=== PATIENT | male | born 1955 | race Asian ===

== ENCOUNTER 2018-10-16 16:57 | Inpatient (IN) | payer MEDICAID ==
[~2018-10-16] VITALS: Ht 167.6 cm; Wt 88.5 kg
[~2018-10-16 16:57] MED LIST: ACET-2178 PO; ASPI-1393 PO; DOCU-150 PO; KEPP500 PO; LIP40 PO; MEMA10TA2 PO; MOM PO; MULT-348 PO; PHEN30TA42 PO; TEMA15CA PO
[2018-10-16] MEDS ORDERED: PIPERACILLIN/TAZ 3.375G PREMIX 50 ML IV ONE (18:00)
[2018-10-16] MEDS ORDERED: SODIUM CHLORIDE 0.9% 1000ML BAG (SEPSIS BOLUS) IV ONE (18:00)
[2018-10-16] MEDS ORDERED: VANCOMYCIN 1 G PREMIX 200 ML IV ONE (18:00)
[2018-10-16 18:31] LABS: HEMATOCRIT. 39.6 % (42.0-52.0); HEMOGLOBIN. 13.4 g/dL (14.0-18.0); MEAN CORPUSCULAR HEMOGLOBIN 30.3 pg (28.0-32.0); MEAN CORPUSCULAR VOLUME 89.7 fL (80.0-94.0); MEAN PLATELET VOLUME 8.3 fl (7.4-10.4); PLATELET 233 x1000/uL (130-400); RED BLOOD CELL COUNT 4.41 mill/uL (4.7-6.1); RED CELL DISTRIBUTION WIDTH 13.7 % (11.6-14.6)
[2018-10-16 18:33] LABS: CHLORIDE 102 mEq/L (98-107)
[2018-10-16 18:34] LABS: PROTHROMBIN TIME 10.3 sec (9.6-11.0)
[2018-10-16] MEDS ORDERED: IOHEXOL-350 100 ML BOTTLE ONE (19:03)
[2018-10-16 19:13] LABS: PLATELET ESTIMATE NORMAL
[2018-10-16] MEDS ORDERED: CLONIDINE 0.1MG TABLET PO PRN (23:45)
[2018-10-16] MEDS ORDERED: MAGNESIUM/ALUMINUM HYDROXIDE/SIMETHICONE 30ML UDC PO PRN (23:45)
[2018-10-16] MEDS ORDERED: IPRATROPIUM/ALBUTEROL 0.5-3(2.5)MG/3ML NEB INH PRN (23:45)
[2018-10-16] MEDS ORDERED: ONDANSETRON HCL 4MG/2ML INJ IV PRN (23:45)
[2018-10-16] MEDS ORDERED: DOCUSATE SODIUM 100MG CAPSULE PO PRN (23:45)
[2018-10-16] MEDS ORDERED: DIPHENHYDRAMINE 50MG/ML VIAL IV PRN (23:45)
[2018-10-16] MEDS ORDERED: ACETAMINOPHEN 650MG SUPP PR PRN (23:45)
[2018-10-16] MEDS ORDERED: GUAIFENESIN 200MG/10ML SUGAR FREE UDC PO PRN (23:45)
[2018-10-16] MEDS ORDERED: ACETAMINOPHEN 650MG/20.3ML UDC GT PRN (23:45)
[2018-10-16] MEDS ORDERED: NA PHOS,M-B/NA PHOS,DI-BA ENEMA 118ML PR PRN (23:45)
[2018-10-16] MEDS ORDERED: LEVOFLOXACIN 500MG PREMIX 100 ML IV SCH (23:45)
[2018-10-17 04:00] VITALS: BP 162/69
[2018-10-17 05:15] VITALS: BP 128/75
[2018-10-17] MEDS ORDERED: METRONIDAZOLE 500 MG PREMIX 100 ML IV SCH (06:00)
[2018-10-17] MEDS: METRONIDAZOLE 500 MG PREMIX 100 ML IV SCH ×3 (06:12→22:21)
[2018-10-17] MEDS: SODIUM CHLORIDE 0.45% 1,000 ML IV SCH ×2 (06:13→22:41)
[2018-10-17] MEDS: SODIUM CHLORIDE 0.9% INJ 3ML FLUSH IVF SCH ×2 (06:14→13:08)
[2018-10-17] MEDS: ACETAMINOPHEN 325MG TABLET PO PRN (06:14)
[2018-10-17 08:00] VITALS: BP 119/68
[2018-10-17] MEDS: LEVOFLOXACIN 500MG PREMIX 100 ML IV SCH (08:04)
[2018-10-17] MEDS: ENOXAPARIN 40MG/0.4ML SYR SUBCUT SCH (08:04)
[2018-10-17 12:00] VITALS: BP 110/62
[2018-10-17 15:59] LABS: HEMATOCRIT. 36.3 % (42.0-52.0); HEMOGLOBIN. 12.1 g/dL (14.0-18.0); MEAN CORPUSCULAR HEMOGLOBIN 30.2 pg (28.0-32.0); MEAN CORPUSCULAR VOLUME 90.2 fL (80.0-94.0); MEAN PLATELET VOLUME 8.4 fl (7.4-10.4); PLATELET 218 x1000/uL (130-400); RED BLOOD CELL COUNT 4.02 mill/uL (4.7-6.1); RED CELL DISTRIBUTION WIDTH 14.1 % (11.6-14.6)
[2018-10-17 16:00] VITALS: BP 115/64
[2018-10-17 16:05] LABS: CHLORIDE 105 mEq/L (98-107)
[2018-10-17 16:13] LABS: LDL CHOLESTEROL 50 mg/dL (5-100)
[2018-10-17 16:14] LABS: HDL CHOLESTEROL 23 mg/dL (40-59)
[2018-10-17 19:28] LABS: PLATELET ESTIMATE NORMAL
[2018-10-17 20:00] VITALS: BP 124/76
[2018-10-17] MEDS ORDERED: TEMAZEPAM 15MG CAPSULE PO PRN (21:45)
[2018-10-17] MEDS: PHENOBARBITAL 30 MG TABLET PO SCH (22:22)
[2018-10-17] MEDS: LEVETIRACETAM 500MG TABLET PO SCH (22:22)
[2018-10-17] MEDS: FLUCONAZOLE 100MG TABLET PO SCH (22:22)
[2018-10-18] VITALS: BP 127/73
[2018-10-18] MEDS: IPRATROPIUM/ALBUTEROL 0.5-3(2.5)MG/3ML NEB INH SCH ×4 (01:23→20:30)
[2018-10-18 04:00] VITALS: BP 109/62
[2018-10-18] MEDS: METRONIDAZOLE 500 MG PREMIX 100 ML IV SCH ×3 (05:21→21:02)
[2018-10-18] MEDS: PHENOBARBITAL 30 MG TABLET PO SCH ×3 (05:21→21:02)
[2018-10-18] MEDS: SODIUM CHLORIDE 0.9% INJ 3ML FLUSH IVF SCH ×2 (05:22→21:04)
[2018-10-18 08:00] VITALS: BP 112/64
[2018-10-18] MEDS: ENOXAPARIN 40MG/0.4ML SYR SUBCUT SCH (09:53)
[2018-10-18] MEDS: LEVETIRACETAM 500MG TABLET PO SCH ×2 (09:54→20:54)
[2018-10-18] MEDS: MEMANTINE HCL 10MG TABLET PO SCH (09:55)
[2018-10-18] MEDS: ASPIRIN 81MG EC TABLET PO SCH (09:55)
[2018-10-18] MEDS: LEVOFLOXACIN 500MG PREMIX 100 ML IV SCH (09:56)
[2018-10-18 12:00] VITALS: BP 112/64
[2018-10-18 12:02] LABS: HEMATOCRIT. 35.2 % (42.0-52.0); HEMOGLOBIN. 11.9 g/dL (14.0-18.0); MEAN CORPUSCULAR HEMOGLOBIN 30.6 pg (28.0-32.0); MEAN CORPUSCULAR VOLUME 90.4 fL (80.0-94.0); MEAN PLATELET VOLUME 8.3 fl (7.4-10.4); PLATELET 253 x1000/uL (130-400); RED BLOOD CELL COUNT 3.89 mill/uL (4.7-6.1); RED CELL DISTRIBUTION WIDTH 13.7 % (11.6-14.6)
[2018-10-18 12:08] LABS: CHLORIDE 103 mEq/L (98-107)
[2018-10-18 14:05] LABS: PLATELET ESTIMATE NORMAL
[2018-10-18 16:00] VITALS: BP 103/55
[2018-10-18] MEDS: NYSTATIN 100,000 UNITS/GM CREAM 15GM TOP SCH (18:40)
[2018-10-18] MEDS: NYSTATIN 100,000 UNITS/ML 5ML UDC SSW SCH ×2 (18:41→23:59)
[2018-10-18] MEDS ORDERED: POTASSIUM CHLORIDE 20MEQ TABLET SR PO SCH ×2 (20:00→20:30)
[2018-10-18 20:49] VITALS: BP 112/58
[2018-10-18] MEDS: FLUCONAZOLE 100MG TABLET PO SCH (20:53)
[2018-10-18] MEDS: SODIUM CHLORIDE 0.45% 1,000 ML IV SCH (20:53)
[2018-10-18] MEDS: ACETAMINOPHEN 325MG TABLET PO PRN (20:55)
[2018-10-18] MEDS ORDERED: ATORVASTATIN CALCIUM 40MG TABLET PO SCH (21:00)
[2018-10-18] MEDS ORDERED: NYSTATIN 100,000 UNITS/GM CREAM 15GM TOP SCH (21:00)
[2018-10-19 00:36] VITALS: BP 108/62
[2018-10-19] MEDS: IPRATROPIUM/ALBUTEROL 0.5-3(2.5)MG/3ML NEB INH SCH ×4 (02:45→20:42)
[2018-10-19 04:00] VITALS: BP 107/61
[2018-10-19] MEDS: SODIUM CHLORIDE 0.9% INJ 3ML FLUSH IVF SCH ×3 (05:28→21:49)
[2018-10-19] MEDS: NYSTATIN 100,000 UNITS/ML 5ML UDC SSW SCH ×3 (05:28→18:32)
[2018-10-19] MEDS: PHENOBARBITAL 30 MG TABLET PO SCH ×3 (05:29→21:49)
[2018-10-19] MEDS: METRONIDAZOLE 500 MG PREMIX 100 ML IV SCH ×3 (05:29→21:49)
[2018-10-19 07:49] LABS: HEPATITIS B SURFACE ANTIGEN NEGATIVE
[2018-10-19 08:00] VITALS: BP 110/60
[2018-10-19 08:18] LABS: HEPATITIS A AB IGM NEGATIVE (NEGATIVE)
[2018-10-19] MEDS: LEVOFLOXACIN 500MG PREMIX 100 ML IV SCH (08:48)
[2018-10-19] MEDS: LEVETIRACETAM 500MG TABLET PO SCH ×2 (08:49→20:54)
[2018-10-19] MEDS: ASPIRIN 81MG EC TABLET PO SCH (08:49)
[2018-10-19] MEDS: ENOXAPARIN 40MG/0.4ML SYR SUBCUT SCH (08:50)
[2018-10-19] MEDS: MEMANTINE HCL 10MG TABLET PO SCH (08:50)
[2018-10-19] MEDS: NYSTATIN 100,000 UNITS/GM CREAM 15GM TOP SCH ×2 (08:58→14:31)
[2018-10-19 09:05] LABS: BASOPHILS % 0.6 % (0.0-2.0); EOSINOPHILS % 2.4 % (0.0-5.0); HEMATOCRIT. 36.9 % (42.0-52.0); HEMOGLOBIN. 12.4 g/dL (14.0-18.0); LYMPHOCYTES % 7.8 % (20.0-50.0); MEAN CORPUSCULAR HEMOGLOBIN 30.9 pg (28.0-32.0); MEAN CORPUSCULAR VOLUME 91.7 fL (80.0-94.0); MEAN PLATELET VOLUME 8.4 fl (7.4-10.4); MONOCYTES % 6.1 % (2.0-8.0); NEUTROPHILS % 83.1 % (40.0-76.0); PLATELET 270 x1000/uL (130-400); RED BLOOD CELL COUNT 4.02 mill/uL (4.7-6.1); RED CELL DISTRIBUTION WIDTH 13.8 % (11.6-14.6)
[2018-10-19 10:05] LABS: CHLORIDE 105 mEq/L (98-107)
[2018-10-19] MEDS: SODIUM CHLORIDE 0.45% 1,000 ML IV SCH ×2 (10:50→22:04)
[2018-10-19 12:00] VITALS: BP 122/67
[2018-10-19 16:00] VITALS: BP 100/59
[2018-10-19] MEDS ORDERED: CLIN300C11 MT (19:45)
[2018-10-19] MEDS ORDERED: LEVO500T2 MT (19:48)
[2018-10-19 20:00] VITALS: BP 112/57
[2018-10-19] MEDS: FLUCONAZOLE 100MG TABLET PO SCH (20:53)
[2018-10-20 00:48] VITALS: BP 111/66
[2018-10-20] MEDS: IPRATROPIUM/ALBUTEROL 0.5-3(2.5)MG/3ML NEB INH SCH ×2 (01:28→08:43)
[2018-10-20 04:00] VITALS: BP 105/63
[2018-10-20] MEDS: NYSTATIN 100,000 UNITS/ML 5ML UDC SSW SCH ×2 (06:00→13:13)
[2018-10-20] MEDS: PHENOBARBITAL 30 MG TABLET PO SCH ×2 (06:02→14:00)
[2018-10-20] MEDS: SODIUM CHLORIDE 0.9% INJ 3ML FLUSH IVF SCH ×2 (06:02→14:00)
[2018-10-20] MEDS: METRONIDAZOLE 500 MG PREMIX 100 ML IV SCH ×2 (06:02→14:00)
[2018-10-20 08:34] VITALS: BP 112/59
[2018-10-20] MEDS: LEVOFLOXACIN 500MG PREMIX 100 ML IV SCH (08:50)
[2018-10-20] MEDS: ASPIRIN 81MG EC TABLET PO SCH (08:50)
[2018-10-20] MEDS: MEMANTINE HCL 10MG TABLET PO SCH (08:51)
[2018-10-20] MEDS: LEVETIRACETAM 500MG TABLET PO SCH (08:51)
[2018-10-20] MEDS: ENOXAPARIN 40MG/0.4ML SYR SUBCUT SCH (08:52)
[2018-10-20] MEDS: NYSTATIN 100,000 UNITS/GM CREAM 15GM TOP SCH (08:53)
[2018-10-20] MEDS ORDERED: BLOOD SUGAR DIAGNOSTIC STRIP TEST SCH (09:00)
[2018-10-20 11:03] VITALS: BP 112/59
[2018-10-20] MEDS ORDERED: CEPH500C2 MT (11:16)
[2018-10-20 11:51] VITALS: BP 111/70
[2018-10-20] MEDS: SODIUM CHLORIDE 0.45% 1,000 ML IV SCH (13:30)
== END 2018-10-20 14:40 | DRG 720 ==
LOC: ER 16:57 → 6WST 20:16 → EDBEDREQTM 20:31 → EDBEDREQ 20:31 → EDBEDREQSVC 20:31 → ENRESERV 10-17 02:47
PROVIDERS: ADMIT Family Medicine; ATTEND Family Medicine
DX: A41.9 Sepsis, unspecified organism (principal); E44.0 Moderate protein-calorie malnutrition; B37.0 Candidal stomatitis; F03.90 Unspecified dementia, unspecified severity, without behavioral disturbance, psychotic disturbance, mood disturbance, and anxiety; K76.0 Fatty (change of) liver, not elsewhere classified; N49.2 Inflammatory disorders of scrotum; L02.31 Cutaneous abscess of buttock; K80.20 Calculus of gallbladder without cholecystitis without obstruction; D18.03 Hemangioma of intra-abdominal structures; E78.5 Hyperlipidemia, unspecified; G40.909 Epilepsy, unspecified, not intractable, without status epilepticus; N43.3 Hydrocele, unspecified; N39.0 Urinary tract infection, site not specified; F17.200 Nicotine dependence, unspecified, uncomplicated; I11.9 Hypertensive heart disease without heart failure; J98.11 Atelectasis; K76.1 Chronic passive congestion of liver; R32 Unspecified urinary incontinence; Z79.1 Long term (current) use of non-steroidal anti-inflammatories (NSAID); Z79.899 Other long term (current) drug therapy
CPT/HCPCS: 36415; 71045; 74177; 76705; 80061; 80076; 82140; 82248; 82962; 83605; 84145; 86705; 86709; 86803; 86850; 86900; 87340; 94640; 96365; 96366; 99291; J1650; J1956; J2543; J3370; J3490; J7030; J7620; Q9967

== ENCOUNTER 2018-10-27 09:11 | Inpatient (IN) | payer MEDICAID ==
[~2018-10-27] VITALS: Ht 170.2 cm; Wt 88.0 kg
[~2018-10-27 09:11] MED LIST changes: +CEPH500C2 MT; +CLIN300C11 MT; +LEVO500T2 MT; -LIP40 PO
[2018-10-27] MEDS ORDERED: LORAZEPAM 2MG/ML CPJ ONE (09:50)
[2018-10-27] MEDS ORDERED: LEVETIRACETAM 1000MG/100ML 100 ML IV ONE (10:00)
[2018-10-27 10:30] LABS: BASOPHILS % 0.7 % (0.0-2.0); EOSINOPHILS % 0.4 % (0.0-5.0); HEMATOCRIT. 38.8 % (42.0-52.0); HEMOGLOBIN. 13.4 g/dL (14.0-18.0); LYMPHOCYTES % 17.6 % (20.0-50.0); MEAN CORPUSCULAR HEMOGLOBIN 30.9 pg (28.0-32.0); MEAN CORPUSCULAR VOLUME 89.5 fL (80.0-94.0); MEAN PLATELET VOLUME 7.8 fl (7.4-10.4); MONOCYTES % 5.6 % (2.0-8.0); NEUTROPHILS % 75.7 % (40.0-76.0); PLATELET 455 x1000/uL (130-400); RED BLOOD CELL COUNT 4.34 mill/uL (4.7-6.1); RED CELL DISTRIBUTION WIDTH 13.9 % (11.6-14.6)
[2018-10-27 10:33] LABS: CHLORIDE 101 mEq/L (98-107)
[2018-10-27 10:36] LABS: ETHANOL BLOOD < 10 mg/dL
[2018-10-27] MEDS ORDERED: LORAZEPAM 2MG/ML CPJ IM STA (10:43)
[2018-10-27] MEDS ORDERED: GUAIFENESIN 200MG/10ML SUGAR FREE UDC PO PRN (13:30)
[2018-10-27] MEDS ORDERED: MORPHINE SULFATE 2 MG/ML CPJ (NOT FOR IM USE) IV PRN (13:30)
[2018-10-27] MEDS ORDERED: ONDANSETRON HCL 4MG/2ML INJ IV PRN (13:30)
[2018-10-27] MEDS ORDERED: NA PHOS,M-B/NA PHOS,DI-BA ENEMA 118ML PR PRN (13:30)
[2018-10-27] MEDS ORDERED: MAGNESIUM/ALUMINUM HYDROXIDE/SIMETHICONE 30ML UDC PO PRN (13:30)
[2018-10-27] MEDS ORDERED: CLONIDINE 0.1MG TABLET PO PRN (13:30)
[2018-10-27] MEDS ORDERED: ACETAMINOPHEN 325MG TABLET PO PRN (13:30)
[2018-10-27] MEDS ORDERED: HYDROCODONE/ACETAMINOPHEN 5/325MG TABLET PO PRN (13:30)
[2018-10-27] MEDS ORDERED: LORAZEPAM 2MG/ML CPJ IV PRN (13:30)
[2018-10-27] MEDS ORDERED: IPRATROPIUM/ALBUTEROL 0.5-3(2.5)MG/3ML NEB NEB PRN (13:30)
[2018-10-27 15:14] LABS: CHLORIDE 102 mEq/L (98-107)
[2018-10-27 15:29] LABS: CLARITY URINE TURBID (CLEAR); COLOR URINE ORANGE (YELLOW); KETONES URINE TRACE (NEGATIVE); LEUKOCYTE ESTERASE URINE TRACE (NEGATIVE); NITRITE URINE NEGATIVE (NEGATIVE); OCCULT BLOOD URINE 3+ (NEGATIVE); PH URINE 7.5 (4.5-8.0); PROTEIN URINE TRACE (NEGATIVE); SPECIFIC GRAVITY URINE 1.009 (1.005-1.030)
[2018-10-27 15:49] LABS: *AMPHETAMINES SCREEN URINE NEGATIVE (NEGATIVE); *BARBITURATES SCREEN URINE PRESUMTIVE POSITIVE (NEGATIVE); *BENZODIAZEPINES SCREEN URINE NEGATIVE (NEGATIVE); *COCAINE SCREEN URINE NEGATIVE (NEGATIVE); METHADONE URINE SCREEN NEGATIVE (NEGATIVE); OPIATES URINE SCREEN NEGATIVE (NEGATIVE)
[2018-10-27 15:50] LABS: CANNABINOID URINE SCREEN NEGATIVE (NEGATIVE); PHENCYCLIDINE URINE SCREEN NEGATIVE (NEGATIVE)
[2018-10-27] MEDS: ENOXAPARIN 40MG/0.4ML SYR SUBCUT SCH (17:57)
[2018-10-27 18:32] VITALS: BP 132/56
[2018-10-27 20:00] VITALS: BP 130/80
[2018-10-27] MEDS: SODIUM CHLORIDE 0.45% 1,000 ML IV SCH (21:28)
[2018-10-28] VITALS (8 sets, daily range): BP systolic 104–155; BP diastolic 60–91
[2018-10-28] MEDS ORDERED: ACETAMINOPHEN 325MG TABLET PO PRN (05:15)
[2018-10-28] MEDS ORDERED: TEMAZEPAM 15MG CAPSULE PO PRN ×2 (05:15→21:00)
[2018-10-28] MEDS ORDERED: PHENOBARBITAL 30 MG TABLET PO SCH ×2 (06:00→08:00)
[2018-10-28 07:10] LABS: BASOPHILS % 0.8 % (0.0-2.0); EOSINOPHILS % 0.3 % (0.0-5.0); HEMATOCRIT. 40.6 % (42.0-52.0); HEMOGLOBIN. 13.9 g/dL (14.0-18.0); LYMPHOCYTES % 21.7 % (20.0-50.0); MEAN CORPUSCULAR HEMOGLOBIN 30.9 pg (28.0-32.0); MEAN PLATELET VOLUME 7.6 fl (7.4-10.4); MONOCYTES % 7.5 % (2.0-8.0); NEUTROPHILS % 69.7 % (40.0-76.0); PLATELET 434 x1000/uL (130-400); RED BLOOD CELL COUNT 4.51 mill/uL (4.7-6.1); RED CELL DISTRIBUTION WIDTH 13.8 % (11.6-14.6)
[2018-10-28 07:51] LABS: CHLORIDE 101 mEq/L (98-107)
[2018-10-28 08:05] LABS: LDL CHOLESTEROL 61 mg/dL (5-100)
[2018-10-28 08:07] LABS: HDL CHOLESTEROL 35 mg/dL (40-59); T4 FREE 1.32 ng/dL (0.76-1.46)
[2018-10-28] MEDS: MULTIVITAMINS,THER W-MINERALS TABLET PO SCH (08:08)
[2018-10-28] MEDS: DOCUSATE SODIUM 100MG CAPSULE PO SCH (08:08)
[2018-10-28] MEDS: MEMANTINE HCL 10MG TABLET PO SCH (08:13)
[2018-10-28] MEDS ORDERED: LEVOFLOXACIN 500MG TABLET PO SCH (09:00)
[2018-10-28] MEDS ORDERED: LEVETIRACETAM 500MG TABLET PO SCH (09:00)
[2018-10-28] MEDS ORDERED: ASPIRIN 81MG EC TABLET PO SCH ×2 (09:00)
[2018-10-28] MEDS: PHENYTOIN SODIUM 100MG/2ML VIAL IV SCH ×2 (14:21→21:55)
[2018-10-28 15:40] LABS: BG BASE EXCESS -0.1 mmol/L (-2.0-2.0); BG CARBOXYHEMOGLOBIN 0.4 % (0.5-1.5); BG DEOXYHEMOGLOBIN 4.2 % (0.0-5.0); BG FRACTION INSPIRED OXYGEN 28; BG HCO3 ACT 23.8 mmol/L (22.0-26.0); BG METHEMOGLOBIN 0.3 % (0.0-1.5); BG OXYGEN SATURATION 95.8 % (92.0-98.5); BG OXYHEMOGLOBIN 95.1 % (94.0-97.0); BG PCO2 36.7 mmHg (35.0-45.0); BG PO2 78.8 mmHg (75.0-100.0); BG SAMPLE SITE RIGHT BRACHIAL; BG TOTAL HEMOGLOBIN 14.7 g/dL (12.0-18.0); BG VENT MODE NASAL CANNULA
[2018-10-28] MEDS ORDERED: LORAZEPAM 2MG/ML CPJ IV PRN (15:45)
[2018-10-28] MEDS: LORAZEPAM 2MG/ML CPJ IV PRN (16:27)
[2018-10-28] MEDS: ENOXAPARIN 40MG/0.4ML SYR SUBCUT SCH (17:32)
[2018-10-28 17:53] LABS: *AMPHETAMINES SCREEN URINE NEGATIVE (NEGATIVE); *BARBITURATES SCREEN URINE PRESUMTIVE POSITIVE (NEGATIVE); *BENZODIAZEPINES SCREEN URINE NEGATIVE (NEGATIVE); *COCAINE SCREEN URINE NEGATIVE (NEGATIVE); METHADONE URINE SCREEN NEGATIVE (NEGATIVE)
[2018-10-28 17:54] LABS: CANNABINOID URINE SCREEN NEGATIVE (NEGATIVE); OPIATES URINE SCREEN PRESUMTIVE POSITIVE (NEGATIVE); PHENCYCLIDINE URINE SCREEN NEGATIVE (NEGATIVE)
[2018-10-28] MEDS: SULFAMETHOXAZOLE/TRIMETHOPRIM 800/160MG TABLET PO SCH (21:00)
[2018-10-28 21:54] LABS: CREATINE KINASE 74 IU/L (39-308); CREATINE KINASE MB FRACTION < 1.0 ng/mL (0.5-3.6)
[2018-10-28 21:55] LABS: T4 FREE 1.26 ng/dL (0.76-1.46)
[2018-10-28] MEDS: LEVETIRACETAM 1,000 MG in SODIUM CHLORIDE 0.9% 100 ML IV SCH (21:55)
[2018-10-29] VITALS (13 sets, daily range): BP systolic 117–150; BP diastolic 72–99
[2018-10-29 01:24] LABS: CREATINE KINASE 72 IU/L (39-308); CREATINE KINASE MB FRACTION < 1.0 ng/mL (0.5-3.6)
[2018-10-29] MEDS: PHENYTOIN SODIUM 100MG/2ML VIAL IV SCH ×2 (05:16→14:00)
[2018-10-29] MEDS: LORAZEPAM 2MG/ML CPJ IV PRN ×3 (06:23→22:35)
[2018-10-29 07:34] LABS: CREATINE KINASE 75 IU/L (39-308)
[2018-10-29 07:36] LABS: CREATINE KINASE MB FRACTION < 1.0 ng/mL (0.5-3.6)
[2018-10-29] MEDS: MULTIVITAMINS,THER W-MINERALS TABLET PO SCH (09:00)
[2018-10-29] MEDS: MEMANTINE HCL 10MG TABLET PO SCH (09:00)
[2018-10-29] MEDS: SULFAMETHOXAZOLE/TRIMETHOPRIM 800/160MG TABLET PO SCH ×2 (09:00→21:00)
[2018-10-29] MEDS: DOCUSATE SODIUM 100MG CAPSULE PO SCH (09:00)
[2018-10-29] MEDS: LEVETIRACETAM 1,000 MG in SODIUM CHLORIDE 0.9% 100 ML IV SCH ×2 (09:26→21:52)
[2018-10-29] MEDS: IPRATROPIUM/ALBUTEROL 0.5-3(2.5)MG/3ML NEB HHN SCH ×2 (16:46→20:55)
[2018-10-29] MEDS: ENOXAPARIN 40MG/0.4ML SYR SUBCUT SCH (17:20)
[2018-10-29] MEDS: SODIUM CHLORIDE 0.45% 1,000 ML IV SCH (17:21)
[2018-10-29] MEDS ORDERED: PHENYTOIN SODIUM 1,000 MG in SODIUM CHLORIDE 0.9% 100 ML IV NR (21:00)
[2018-10-30] VITALS (46 sets, daily range): BP systolic 87–169; BP diastolic 46–99
[2018-10-30] MEDS: IPRATROPIUM/ALBUTEROL 0.5-3(2.5)MG/3ML NEB HHN SCH ×5 (00:11→19:58)
[2018-10-30] MEDS: ACETYLCYSTEINE 100MG/ML 10% VIAL 4ML INH SCH ×3 (00:11→15:50)
[2018-10-30] MEDS: LORAZEPAM 2MG/ML CPJ IV PRN (07:45)
[2018-10-30] MEDS: PHENYTOIN SODIUM 100MG/2ML VIAL IV SCH ×3 (07:45→22:03)
[2018-10-30] MEDS ORDERED: LORAZEPAM 2MG/ML CPJ IV SCH ×2 (08:30→09:32)
[2018-10-30] MEDS: LEVETIRACETAM 1,000 MG in SODIUM CHLORIDE 0.9% 100 ML IV SCH (08:48)
[2018-10-30] MEDS: DOCUSATE SODIUM 100MG CAPSULE PO SCH (09:00)
[2018-10-30] MEDS ORDERED: SODIUM CHLORIDE 0.9% 10ML VIAL ONE (09:15)
[2018-10-30] MEDS ORDERED: VECURONIUM BROMIDE 10 MG/VIAL IV ONE (09:15)
[2018-10-30] MEDS ORDERED: ETOMIDATE 2MG/ML 10ML VIAL IV ONE (09:15)
[2018-10-30 10:35] LABS: BG BASE EXCESS -2.8 mmol/L (-2.0-2.0); BG CARBOXYHEMOGLOBIN 0.2 % (0.5-1.5); BG DEOXYHEMOGLOBIN 0.8 % (0.0-5.0); BG FRACTION INSPIRED OXYGEN 100; BG HCO3 ACT 21.9 mmol/L (22.0-26.0); BG METHEMOGLOBIN 0.4 % (0.0-1.5); BG OXYGEN SATURATION 99.2 % (92.0-98.5); BG OXYHEMOGLOBIN 98.6 % (94.0-97.0); BG PCO2 37.9 mmHg (35.0-45.0); BG PH 7.379 (7.350-7.450); BG SAMPLE SITE RIGHT BRACHIAL; BG TIDAL VOLUME(mL) 500 mL; BG TOTAL HEMOGLOBIN 14.7 g/dL (12.0-18.0); BG VENT MODE VENT - A/C; BG VENT RATE 14 set
[2018-10-30] MEDS: SULFAMETHOXAZOLE/TRIMETHOPRIM 800/160MG TABLET PO SCH ×2 (11:29→20:57)
[2018-10-30] MEDS: MULTIVITAMINS,THER W-MINERALS TABLET PO SCH (11:30)
[2018-10-30] MEDS: PROPOFOL 10MG/ML 100ML 100 ML IV PRN ×2 (11:34→19:15)
[2018-10-30] MEDS: PIPERACILLIN/TAZOBACTAM 3.375 G in DEXT 5% WATER 100 ML IV SCH ×2 (13:10→19:25)
[2018-10-30] MEDS: SODIUM CHLORIDE 0.45% 1,000 ML IV SCH (13:14)
[2018-10-30] MEDS: FAMOTIDINE 20MG/2ML VIAL IV SCH (14:02)
[2018-10-30 14:29] LABS: CHLORIDE 102 mEq/L (98-107)
[2018-10-30] MEDS: MEMANTINE HCL 10MG TABLET PO SCH (14:30)
[2018-10-30] MEDS ORDERED: ACETAMINOPHEN 650MG/20.3ML UDC PO PRN (14:30)
[2018-10-30] MEDS: DEXT 5%/0.9% NACL 1,000 ML IV SCH (14:35)
[2018-10-30 17:39] LABS: BASOPHILS % 0.8 % (0.0-2.0); EOSINOPHILS % 0.1 % (0.0-5.0); HEMATOCRIT. 40.3 % (42.0-52.0); HEMOGLOBIN. 13.5 g/dL (14.0-18.0); LYMPHOCYTES % 15.5 % (20.0-50.0); MEAN CORPUSCULAR HEMOGLOBIN 30.5 pg (28.0-32.0); MEAN CORPUSCULAR VOLUME 91.2 fL (80.0-94.0); MEAN PLATELET VOLUME 7.8 fl (7.4-10.4); MONOCYTES % 9.1 % (2.0-8.0); NEUTROPHILS % 74.5 % (40.0-76.0); PLATELET 361 x1000/uL (130-400); RED BLOOD CELL COUNT 4.42 mill/uL (4.7-6.1); RED CELL DISTRIBUTION WIDTH 14.2 % (11.6-14.6)
[2018-10-30] MEDS: ENOXAPARIN 40MG/0.4ML SYR SUBCUT SCH (19:25)
[2018-10-30] MEDS: LEVETIRACETAM 1,500 MG in SODIUM CHLORIDE 0.9% 100 ML IV SCH (20:57)
[2018-10-30] MEDS: NYSTATIN 100,000 UNITS/GM CREAM 15GM TOP SCH (22:58)
[2018-10-31] VITALS (66 sets, daily range): BP systolic 96–137; BP diastolic 56–90
[2018-10-31] MEDS: ACETYLCYSTEINE 100MG/ML 10% VIAL 4ML INH SCH ×2 (00:13→08:06)
[2018-10-31] MEDS: IPRATROPIUM/ALBUTEROL 0.5-3(2.5)MG/3ML NEB HHN SCH ×6 (00:13→20:03)
[2018-10-31] MEDS: PIPERACILLIN/TAZOBACTAM 3.375 G in DEXT 5% WATER 100 ML IV SCH ×4 (00:24→17:16)
[2018-10-31] MEDS: PROPOFOL 10MG/ML 100ML 100 ML IV PRN (05:19)
[2018-10-31 05:43] LABS: BASOPHILS % 0.4 % (0.0-2.0); EOSINOPHILS % 0.9 % (0.0-5.0); HEMATOCRIT. 37.3 % (42.0-52.0); HEMOGLOBIN. 12.5 g/dL (14.0-18.0); LYMPHOCYTES % 15.2 % (20.0-50.0); MEAN CORPUSCULAR HEMOGLOBIN 30.6 pg (28.0-32.0); MEAN CORPUSCULAR VOLUME 91.2 fL (80.0-94.0); MEAN PLATELET VOLUME 7.6 fl (7.4-10.4); MONOCYTES % 11.2 % (2.0-8.0); NEUTROPHILS % 72.3 % (40.0-76.0); PLATELET 275 x1000/uL (130-400)
[2018-10-31 05:55] LABS: CHLORIDE 104 mEq/L (98-107)
[2018-10-31] MEDS: PHENYTOIN SODIUM 100MG/2ML VIAL IV SCH ×3 (05:58→22:05)
[2018-10-31] MEDS: DEXT 5%/0.9% NACL 1,000 ML IV SCH ×2 (05:59→17:17)
[2018-10-31] MEDS: LEVETIRACETAM 1,500 MG in SODIUM CHLORIDE 0.9% 100 ML IV SCH ×2 (08:15→20:52)
[2018-10-31] MEDS: MULTIVITAMINS,THER W-MINERALS TABLET PO SCH (08:15)
[2018-10-31] MEDS: SULFAMETHOXAZOLE/TRIMETHOPRIM 800/160MG TABLET PO SCH ×2 (08:15→20:52)
[2018-10-31] MEDS: MEMANTINE HCL 10MG TABLET PO SCH (08:15)
[2018-10-31] MEDS: NYSTATIN 100,000 UNITS/GM CREAM 15GM TOP SCH ×2 (08:15→20:52)
[2018-10-31] MEDS: FAMOTIDINE 20MG/2ML VIAL IV SCH (08:15)
[2018-10-31] MEDS: DOCUSATE SODIUM 100MG CAPSULE PO SCH (08:16)
[2018-10-31 08:46] LABS: BG BASE EXCESS 2.3 mmol/L (-2.0-2.0); BG CARBOXYHEMOGLOBIN 0.2 % (0.5-1.5); BG DEOXYHEMOGLOBIN 0.8 % (0.0-5.0); BG FRACTION INSPIRED OXYGEN 50; BG HCO3 ACT 26.4 mmol/L (22.0-26.0); BG METHEMOGLOBIN 0.3 % (0.0-1.5); BG OXYGEN SATURATION 99.2 % (92.0-98.5); BG OXYHEMOGLOBIN 98.7 % (94.0-97.0); BG PCO2 39.2 mmHg (35.0-45.0); BG PH 7.446 (7.350-7.450); BG PO2 188.4 mmHg (75.0-100.0); BG SAMPLE SITE RIGHT RADIAL; BG TIDAL VOLUME(mL) 500 mL; BG VENT MODE VENT - A/C; BG VENT RATE 14 set
[2018-10-31] MEDS ORDERED: PROPOFOL 10MG/ML 100ML 100 ML IV PRN (10:30)
[2018-10-31] MEDS ORDERED: POTASSIUM CHLORIDE INJ 40 MEQ in DEXT 5% WATER 250 ML IV NR (11:30)
[2018-10-31] MEDS: ENOXAPARIN 40MG/0.4ML SYR SUBCUT SCH (17:17)
[2018-11-01] VITALS (48 sets, daily range): BP systolic 93–129; BP diastolic 55–80
[2018-11-01] MEDS: IPRATROPIUM/ALBUTEROL 0.5-3(2.5)MG/3ML NEB HHN SCH ×5 (04:06→20:58)
[2018-11-01 05:43] LABS: BASOPHILS % 0.7 % (0.0-2.0); EOSINOPHILS % 1.5 % (0.0-5.0); HEMATOCRIT. 34.4 % (42.0-52.0); HEMOGLOBIN. 11.7 g/dL (14.0-18.0); LYMPHOCYTES % 18.2 % (20.0-50.0); MEAN CORPUSCULAR HEMOGLOBIN 30.7 pg (28.0-32.0); MEAN CORPUSCULAR VOLUME 90.2 fL (80.0-94.0); MEAN PLATELET VOLUME 8.1 fl (7.4-10.4); MONOCYTES % 8.7 % (2.0-8.0); NEUTROPHILS % 70.9 % (40.0-76.0); PLATELET 272 x1000/uL (130-400); RED BLOOD CELL COUNT 3.81 mill/uL (4.7-6.1); RED CELL DISTRIBUTION WIDTH 14.1 % (11.6-14.6)
[2018-11-01 05:45] LABS: CHLORIDE 110 mEq/L (98-107)
[2018-11-01] MEDS: PIPERACILLIN/TAZOBACTAM 3.375 G in DEXT 5% WATER 100 ML IV SCH ×5 (06:04→17:39)
[2018-11-01] MEDS: PHENYTOIN SODIUM 100MG/2ML VIAL IV SCH ×3 (06:04→21:25)
[2018-11-01 07:12] LABS: BG BASE EXCESS -0.5 mmol/L (-2.0-2.0); BG CARBOXYHEMOGLOBIN 0.2 % (0.5-1.5); BG DEOXYHEMOGLOBIN 1.5 % (0.0-5.0); BG HCO3 ACT 22.9 mmol/L (22.0-26.0); BG METHEMOGLOBIN 0.6 % (0.0-1.5); BG OXYGEN SATURATION 98.5 % (92.0-98.5); BG OXYHEMOGLOBIN 97.7 % (94.0-97.0); BG PCO2 33.6 mmHg (35.0-45.0); BG PH 7.451 (7.350-7.450); BG PO2 129.5 mmHg (75.0-100.0); BG SAMPLE SITE RIGHT BRACHIAL; BG TIDAL VOLUME(mL) 500 mL; BG TOTAL HEMOGLOBIN 12.4 g/dL (12.0-18.0); BG VENT MODE VENT - A/C; BG VENT RATE 14 set
[2018-11-01] MEDS: DEXT 5%/0.9% NACL 1,000 ML IV SCH ×2 (07:28→17:40)
[2018-11-01] MEDS ORDERED: POTASSIUM CHLORIDE 20MEQ/PACKET PO SCH (08:00)
[2018-11-01] MEDS: DOCUSATE SODIUM 100MG CAPSULE PO SCH (08:07)
[2018-11-01] MEDS: MEMANTINE HCL 10MG TABLET PO SCH (08:07)
[2018-11-01] MEDS: SULFAMETHOXAZOLE/TRIMETHOPRIM 800/160MG TABLET PO SCH ×2 (08:07→21:24)
[2018-11-01] MEDS: MULTIVITAMINS,THER W-MINERALS TABLET PO SCH (08:07)
[2018-11-01] MEDS: FAMOTIDINE 20MG/2ML VIAL IV SCH (08:07)
[2018-11-01] MEDS: LEVETIRACETAM 1,500 MG in SODIUM CHLORIDE 0.9% 100 ML IV SCH ×2 (08:08→21:43)
[2018-11-01] MEDS: NYSTATIN 100,000 UNITS/GM CREAM 15GM TOP SCH ×2 (08:08→21:26)
[2018-11-01] MEDS: ACETYLCYSTEINE 100MG/ML 10% VIAL 4ML INH SCH (08:49)
[2018-11-01] MEDS: ENOXAPARIN 40MG/0.4ML SYR SUBCUT SCH (17:39)
[2018-11-02] VITALS (37 sets, daily range): BP systolic 91–152; BP diastolic 57–84
[2018-11-02] MEDS: ACETYLCYSTEINE 100MG/ML 10% VIAL 4ML INH SCH ×3 (00:36→15:06)
[2018-11-02] MEDS: IPRATROPIUM/ALBUTEROL 0.5-3(2.5)MG/3ML NEB HHN SCH ×6 (00:36→20:46)
[2018-11-02] MEDS: PIPERACILLIN/TAZOBACTAM 3.375 G in DEXT 5% WATER 100 ML IV SCH ×4 (00:57→17:31)
[2018-11-02] MEDS: DEXT 5%/0.9% NACL 1,000 ML IV SCH ×2 (03:58→20:56)
[2018-11-02 07:31] LABS: BG BASE EXCESS -1.2 mmol/L (-2.0-2.0); BG CARBOXYHEMOGLOBIN 0.3 % (0.5-1.5); BG DEOXYHEMOGLOBIN 1.4 % (0.0-5.0); BG HCO3 ACT 22.2 mmol/L (22.0-26.0); BG METHEMOGLOBIN 0.3 % (0.0-1.5); BG OXYGEN SATURATION 98.6 % (92.0-98.5); BG PCO2 32.9 mmHg (35.0-45.0); BG PH 7.447 (7.350-7.450); BG PO2 130.4 mmHg (75.0-100.0); BG SAMPLE SITE RIGHT BRACHIAL; BG TIDAL VOLUME(mL) 500 mL; BG TOTAL HEMOGLOBIN 11.6 g/dL (12.0-18.0); BG VENT MODE VENT - A/C; BG VENT RATE 12 set
[2018-11-02 08:04] LABS: BASOPHILS % 0.8 % (0.0-2.0); EOSINOPHILS % 3.1 % (0.0-5.0); HEMATOCRIT. 33.5 % (42.0-52.0); HEMOGLOBIN. 11.1 g/dL (14.0-18.0); LYMPHOCYTES % 20.3 % (20.0-50.0); MEAN CORPUSCULAR HEMOGLOBIN 30.5 pg (28.0-32.0); MEAN CORPUSCULAR VOLUME 92.1 fL (80.0-94.0); MEAN PLATELET VOLUME 8.3 fl (7.4-10.4); MONOCYTES % 10.3 % (2.0-8.0); NEUTROPHILS % 65.5 % (40.0-76.0); PLATELET 228 x1000/uL (130-400); RED BLOOD CELL COUNT 3.64 mill/uL (4.7-6.1); RED CELL DISTRIBUTION WIDTH 14.6 % (11.6-14.6)
[2018-11-02 08:09] LABS: CHLORIDE 111 mEq/L (98-107)
[2018-11-02] MEDS: LEVETIRACETAM 500MG/5ML CUP PO SCH ×2 (08:27→21:09)
[2018-11-02] MEDS: FAMOTIDINE 20MG/2ML VIAL IV SCH (08:28)
[2018-11-02] MEDS: MULTIVITAMINS,THER W-MINERALS TABLET PO SCH (08:28)
[2018-11-02] MEDS: NYSTATIN 100,000 UNITS/GM CREAM 15GM TOP SCH ×2 (08:28→21:12)
[2018-11-02] MEDS: SULFAMETHOXAZOLE/TRIMETHOPRIM 800/160MG TABLET PO SCH ×2 (08:28→21:10)
[2018-11-02] MEDS: DOCUSATE SODIUM 100MG CAPSULE PO SCH (08:28)
[2018-11-02] MEDS: PHENYTOIN 100 MG/4 ML UDC NG SCH ×2 (08:28→17:32)
[2018-11-02 14:28] LABS: BG BASE EXCESS -0.6 mmol/L (-2.0-2.0); BG CARBOXYHEMOGLOBIN 0.3 % (0.5-1.5); BG DEOXYHEMOGLOBIN 1.4 % (0.0-5.0); BG HCO3 ACT 23.2 mmol/L (22.0-26.0); BG METHEMOGLOBIN 0.2 % (0.0-1.5); BG OXYGEN SATURATION 98.6 % (92.0-98.5); BG OXYHEMOGLOBIN 98.1 % (94.0-97.0); BG PCO2 35.4 mmHg (35.0-45.0); BG PH 7.435 (7.350-7.450); BG PO2 140.1 mmHg (75.0-100.0); BG SAMPLE SITE RIGHT BRACHIAL; BG TIDAL VOLUME(mL) 500 mL; BG TOTAL HEMOGLOBIN 11.5 g/dL (12.0-18.0); BG VENT MODE VENT - SIMV; BG VENT RATE 10 set
[2018-11-02] MEDS: ENOXAPARIN 40MG/0.4ML SYR SUBCUT SCH (17:32)
[2018-11-03] VITALS (35 sets, daily range): BP systolic 99–142; BP diastolic 57–86
[2018-11-03] MEDS: ACETYLCYSTEINE 100MG/ML 10% VIAL 4ML INH SCH ×3 (00:13→15:27)
[2018-11-03] MEDS: IPRATROPIUM/ALBUTEROL 0.5-3(2.5)MG/3ML NEB HHN SCH ×6 (00:14→21:11)
[2018-11-03] MEDS: PIPERACILLIN/TAZOBACTAM 3.375 G in DEXT 5% WATER 100 ML IV SCH ×5 (00:32→23:37)
[2018-11-03 06:04] LABS: CHLORIDE 111 mEq/L (98-107)
[2018-11-03 08:15] LABS: HEMOGLOBIN 11.6 g/dL (14.0-18.0); MEAN CORPUSCULAR HEMOGLOBIN 30.9 pg (28.0-32.0); MEAN CORPUSCULAR VOLUME 90.8 fL (80.0-94.0); PLATELET 263 x1000/uL (130-400); RED BLOOD CELL COUNT 3.75 mill/uL (4.7-6.1); RED CELL DISTRIBUTION WIDTH 14.3 % (11.6-14.6)
[2018-11-03] MEDS: SULFAMETHOXAZOLE/TRIMETHOPRIM 800/160MG TABLET PO SCH ×2 (08:49→20:51)
[2018-11-03] MEDS: FAMOTIDINE 20MG/2ML VIAL IV SCH (08:49)
[2018-11-03] MEDS: MULTIVITAMINS,THER W-MINERALS TABLET PO SCH (08:49)
[2018-11-03 08:50] LABS: BG BASE EXCESS -0.9 mmol/L (-2.0-2.0); BG CARBOXYHEMOGLOBIN 0.5 % (0.5-1.5); BG DEOXYHEMOGLOBIN 1.8 % (0.0-5.0); BG FRACTION INSPIRED OXYGEN 40; BG HCO3 ACT 22.9 mmol/L (22.0-26.0); BG METHEMOGLOBIN 0.3 % (0.0-1.5); BG OXYGEN SATURATION 98.2 % (92.0-98.5); BG OXYHEMOGLOBIN 97.4 % (94.0-97.0); BG PCO2 35.6 mmHg (35.0-45.0); BG PH 7.427 (7.350-7.450); BG PO2 110.6 mmHg (75.0-100.0); BG PRESSURE SUPPORT 14; BG SAMPLE SITE RIGHT BRACHIAL; BG TIDAL VOLUME(mL) 500 mL; BG TOTAL HEMOGLOBIN 13.4 g/dL (12.0-18.0); BG VENT MODE VENT - SIMV; BG VENT RATE 10 set
[2018-11-03] MEDS: LEVETIRACETAM 500MG/5ML CUP PO SCH ×2 (08:50→20:52)
[2018-11-03] MEDS: DEXT 5%/0.9% NACL 1,000 ML IV SCH (08:50)
[2018-11-03] MEDS: DOCUSATE SODIUM 100MG CAPSULE PO SCH (08:50)
[2018-11-03] MEDS: PHENYTOIN 100 MG/4 ML UDC NG SCH ×2 (08:50→17:24)
[2018-11-03] MEDS: NYSTATIN 100,000 UNITS/GM CREAM 15GM TOP SCH ×2 (08:51→20:56)
[2018-11-03 12:29] LABS: BG BASE EXCESS 1.2 mmol/L (-2.0-2.0); BG CARBOXYHEMOGLOBIN 0.2 % (0.5-1.5); BG DEOXYHEMOGLOBIN 2.1 % (0.0-5.0); BG FRACTION INSPIRED OXYGEN 35; BG HCO3 ACT 25.7 mmol/L (22.0-26.0); BG METHEMOGLOBIN 0.3 % (0.0-1.5); BG OXYGEN SATURATION 97.9 % (92.0-98.5); BG OXYHEMOGLOBIN 97.4 % (94.0-97.0); BG PCO2 40.4 mmHg (35.0-45.0); BG PH 7.422 (7.350-7.450); BG PO2 108.3 mmHg (75.0-100.0); BG PRESSURE SUPPORT 8; BG SAMPLE SITE RIGHT BRACHIAL; BG TOTAL HEMOGLOBIN 13.6 g/dL (12.0-18.0); BG VENT MODE VENT - CPAP
[2018-11-03] MEDS: NYSTATIN 100,000 UNITS/ML 5ML UDC SSW SCH ×3 (12:41→23:37)
[2018-11-03] MEDS: ENOXAPARIN 40MG/0.4ML SYR SUBCUT SCH (17:24)
[2018-11-04] VITALS (32 sets, daily range): BP systolic 102–144; BP diastolic 59–86
[2018-11-04] MEDS: IPRATROPIUM/ALBUTEROL 0.5-3(2.5)MG/3ML NEB HHN SCH ×7 (00:44→23:41)
[2018-11-04] MEDS: PIPERACILLIN/TAZOBACTAM 3.375 G in DEXT 5% WATER 100 ML IV SCH (05:37)
[2018-11-04] MEDS: NYSTATIN 100,000 UNITS/ML 5ML UDC SSW SCH ×4 (05:41→23:38)
[2018-11-04] MEDS: DEXT 5%/0.9% NACL 1,000 ML IV SCH ×3 (07:41→20:30)
[2018-11-04] MEDS: DOCUSATE SODIUM 100MG CAPSULE PO SCH (09:00)
[2018-11-04] MEDS: FAMOTIDINE 20MG/2ML VIAL IV SCH (09:39)
[2018-11-04] MEDS: MULTIVITAMINS,THER W-MINERALS TABLET PO SCH (09:39)
[2018-11-04] MEDS: SULFAMETHOXAZOLE/TRIMETHOPRIM 800/160MG TABLET PO SCH ×2 (09:39→20:28)
[2018-11-04] MEDS: PHENYTOIN 100 MG/4 ML UDC NG SCH ×2 (09:40→16:58)
[2018-11-04] MEDS: LEVETIRACETAM 500MG/5ML CUP PO SCH ×2 (09:40→20:29)
[2018-11-04] MEDS: NYSTATIN 100,000 UNITS/GM CREAM 15GM TOP SCH ×2 (09:44→20:29)
[2018-11-04] MEDS: METRONIDAZOLE 500 MG PREMIX 100 ML IV SCH ×2 (13:40→20:28)
[2018-11-04] MEDS: ENOXAPARIN 40MG/0.4ML SYR SUBCUT SCH (16:54)
[2018-11-04] MEDS: ACETYLCYSTEINE 100MG/ML 10% VIAL 4ML INH SCH (20:34)
[2018-11-05] VITALS (25 sets, daily range): BP systolic 71–170; BP diastolic 39–101
[2018-11-05] MEDS: DIPHENHYDRAMINE 50MG/ML VIAL IV PRN ×2 (01:24→15:40)
[2018-11-05] MEDS: METRONIDAZOLE 500 MG PREMIX 100 ML IV SCH ×3 (03:24→20:27)
[2018-11-05] MEDS: IPRATROPIUM/ALBUTEROL 0.5-3(2.5)MG/3ML NEB HHN SCH ×5 (04:18→20:11)
[2018-11-05 05:26] LABS: BASOPHILS % 0.8 % (0.0-2.0); EOSINOPHILS % 9.1 % (0.0-5.0); HEMOGLOBIN. 12.2 g/dL (14.0-18.0); MEAN CORPUSCULAR HEMOGLOBIN 30.9 pg (28.0-32.0); MEAN CORPUSCULAR VOLUME 90.8 fL (80.0-94.0); MEAN PLATELET VOLUME 7.6 fl (7.4-10.4); MONOCYTES % 12.1 % (2.0-8.0); PLATELET 268 x1000/uL (130-400); RED BLOOD CELL COUNT 3.96 mill/uL (4.7-6.1)
[2018-11-05 05:32] LABS: CHLORIDE 111 mEq/L (98-107)
[2018-11-05] MEDS: NYSTATIN 100,000 UNITS/ML 5ML UDC SSW SCH ×3 (06:06→17:16)
[2018-11-05] MEDS: MULTIVITAMINS,THER W-MINERALS TABLET PO SCH (08:51)
[2018-11-05] MEDS: LEVETIRACETAM 500MG/5ML CUP PO SCH ×2 (08:51→20:27)
[2018-11-05] MEDS: FAMOTIDINE 20MG/2ML VIAL IV SCH (08:51)
[2018-11-05] MEDS: PHENYTOIN 100 MG/4 ML UDC NG SCH ×2 (08:51→17:16)
[2018-11-05] MEDS: NYSTATIN 100,000 UNITS/GM CREAM 15GM TOP SCH ×2 (08:53→22:08)
[2018-11-05] MEDS: DEXT 5%/0.9% NACL 1,000 ML IV SCH ×2 (09:12→22:08)
[2018-11-05] MEDS: DOCUSATE SODIUM SUGAR FREE 100MG/10ML UDC NG SCH (09:58)
[2018-11-05] MEDS: ENOXAPARIN 40MG/0.4ML SYR SUBCUT SCH (17:18)
[2018-11-06] VITALS: BP 129/60
[2018-11-06] MEDS: IPRATROPIUM/ALBUTEROL 0.5-3(2.5)MG/3ML NEB HHN SCH ×6 (00:38→21:35)
[2018-11-06] MEDS: NYSTATIN 100,000 UNITS/ML 5ML UDC SSW SCH ×4 (00:46→17:28)
[2018-11-06 04:00] VITALS: BP 123/67
[2018-11-06] MEDS: METRONIDAZOLE 500 MG PREMIX 100 ML IV SCH ×3 (04:04→20:28)
[2018-11-06 06:58] LABS: HEMATOCRIT. 38.3 % (42.0-52.0); HEMOGLOBIN. 12.8 g/dL (14.0-18.0); MEAN CORPUSCULAR HEMOGLOBIN 30.4 pg (28.0-32.0); MEAN CORPUSCULAR VOLUME 91.1 fL (80.0-94.0); MEAN PLATELET VOLUME 7.8 fl (7.4-10.4); PLATELET 286 x1000/uL (130-400); RED CELL DISTRIBUTION WIDTH 14.4 % (11.6-14.6)
[2018-11-06 07:14] LABS: CHLORIDE 108 mEq/L (98-107)
[2018-11-06 08:00] VITALS: BP 125/69
[2018-11-06] MEDS: DOCUSATE SODIUM 100MG CAPSULE PO PRN (08:42)
[2018-11-06] MEDS: MULTIVITAMINS,THER W-MINERALS TABLET PO SCH (08:42)
[2018-11-06] MEDS: PHENYTOIN 100 MG/4 ML UDC NG SCH ×2 (08:42→17:23)
[2018-11-06] MEDS: LEVETIRACETAM 500MG/5ML CUP PO SCH ×2 (08:42→20:28)
[2018-11-06] MEDS: DOCUSATE SODIUM SUGAR FREE 100MG/10ML UDC NG SCH ×2 (09:00→09:15)
[2018-11-06] MEDS: NYSTATIN 100,000 UNITS/GM CREAM 15GM TOP SCH ×2 (09:29→20:28)
[2018-11-06] MEDS: DEXT 5%/0.9% NACL 1,000 ML IV SCH (11:41)
[2018-11-06] MEDS: FAMOTIDINE 20MG/2ML VIAL IV SCH (11:45)
[2018-11-06 11:55] LABS: PLATELET ESTIMATE NORMAL
[2018-11-06 12:00] VITALS: BP 119/63
[2018-11-06 16:27] VITALS: BP 126/69
[2018-11-06] MEDS: ENOXAPARIN 40MG/0.4ML SYR SUBCUT SCH (17:24)
[2018-11-06 20:00] VITALS: BP 135/73
[2018-11-07] VITALS: BP 130/72
[2018-11-07] MEDS: NYSTATIN 100,000 UNITS/ML 5ML UDC SSW SCH ×4 (00:06→18:05)
[2018-11-07] MEDS: DEXT 5%/0.9% NACL 1,000 ML IV SCH ×2 (00:10→12:38)
[2018-11-07] MEDS: IPRATROPIUM/ALBUTEROL 0.5-3(2.5)MG/3ML NEB HHN SCH ×6 (01:16→21:29)
[2018-11-07 04:00] VITALS: BP 146/74
[2018-11-07] MEDS: METRONIDAZOLE 500 MG PREMIX 100 ML IV SCH ×3 (04:14→21:17)
[2018-11-07 08:02] VITALS: BP 136/83
[2018-11-07] MEDS: FAMOTIDINE 20MG/2ML VIAL IV SCH (08:16)
[2018-11-07] MEDS: PHENYTOIN 100 MG/4 ML UDC NG SCH ×2 (08:16→17:45)
[2018-11-07] MEDS: LEVETIRACETAM 500MG/5ML CUP PO SCH ×2 (08:16→21:17)
[2018-11-07] MEDS: NYSTATIN 100,000 UNITS/GM CREAM 15GM TOP SCH ×2 (08:17→21:18)
[2018-11-07] MEDS: MULTIVITAMINS,THER W-MINERALS TABLET PO SCH (08:17)
[2018-11-07 13:00] VITALS: BP 124/68
[2018-11-07 16:38] VITALS: BP 135/76
[2018-11-07] MEDS: ENOXAPARIN 40MG/0.4ML SYR SUBCUT SCH (17:45)
[2018-11-07] MEDS: DOCUSATE SODIUM SUGAR FREE 100MG/10ML UDC NG SCH (18:03)
[2018-11-07 20:00] VITALS: BP 144/64
[2018-11-08] VITALS: BP 150/76
[2018-11-08] MEDS: NYSTATIN 100,000 UNITS/ML 5ML UDC SSW SCH ×4 (00:44→18:36)
[2018-11-08] MEDS: DEXT 5%/0.9% NACL 1,000 ML IV SCH ×2 (00:45→13:42)
[2018-11-08] MEDS: ACETYLCYSTEINE 100MG/ML 10% VIAL 4ML INH SCH ×3 (01:30→16:21)
[2018-11-08] MEDS: IPRATROPIUM/ALBUTEROL 0.5-3(2.5)MG/3ML NEB HHN SCH ×6 (01:30→20:01)
[2018-11-08 04:00] VITALS: BP 141/79
[2018-11-08] MEDS: METRONIDAZOLE 500 MG PREMIX 100 ML IV SCH ×3 (04:56→20:44)
[2018-11-08 07:57] VITALS: BP 130/83
[2018-11-08] MEDS: DOCUSATE SODIUM SUGAR FREE 100MG/10ML UDC NG SCH (09:00)
[2018-11-08] MEDS: MULTIVITAMINS,THER W-MINERALS TABLET PO SCH (10:34)
[2018-11-08] MEDS: FAMOTIDINE 20MG/2ML VIAL IV SCH (10:35)
[2018-11-08] MEDS: LEVETIRACETAM 500MG/5ML CUP PO SCH ×2 (10:35→20:44)
[2018-11-08] MEDS: PHENYTOIN 100 MG/4 ML UDC NG SCH ×2 (10:35→18:36)
[2018-11-08] MEDS: NYSTATIN 100,000 UNITS/GM CREAM 15GM TOP SCH ×2 (10:36→13:40)
[2018-11-08 12:11] VITALS: BP 112/82
[2018-11-08 15:46] VITALS: BP 134/82
[2018-11-08] MEDS: ENOXAPARIN 40MG/0.4ML SYR SUBCUT SCH (18:36)
[2018-11-08 20:17] VITALS: BP 138/77
[2018-11-08] MEDS: RISPERIDONE 0.25MG TABLET PO SCH (20:45)
[2018-11-09] MEDS: NYSTATIN 100,000 UNITS/ML 5ML UDC SSW SCH ×4 (00:08→17:00)
[2018-11-09 00:57] VITALS: BP 134/72
[2018-11-09] MEDS: IPRATROPIUM/ALBUTEROL 0.5-3(2.5)MG/3ML NEB HHN SCH ×6 (00:59→21:00)
[2018-11-09] MEDS: ACETYLCYSTEINE 100MG/ML 10% VIAL 4ML INH SCH (01:00)
[2018-11-09] MEDS: DEXT 5%/0.9% NACL 1,000 ML IV SCH ×2 (02:33→17:00)
[2018-11-09] MEDS: METRONIDAZOLE 500 MG PREMIX 100 ML IV SCH ×3 (04:14→20:13)
[2018-11-09 04:45] VITALS: BP 126/81
[2018-11-09 08:00] VITALS: BP 132/80
[2018-11-09] MEDS: LEVETIRACETAM 500MG/5ML CUP PO SCH ×2 (08:44→20:13)
[2018-11-09] MEDS: FAMOTIDINE 20MG/2ML VIAL IV SCH (08:44)
[2018-11-09] MEDS: PHENYTOIN 100 MG/4 ML UDC NG SCH ×2 (08:44→17:00)
[2018-11-09] MEDS: MULTIVITAMINS,THER W-MINERALS TABLET PO SCH (08:45)
[2018-11-09] MEDS: DOCUSATE SODIUM 100MG CAPSULE PO PRN (08:45)
[2018-11-09] MEDS: NYSTATIN 100,000 UNITS/GM CREAM 15GM TOP SCH ×2 (08:46→20:14)
[2018-11-09] MEDS: DOCUSATE SODIUM SUGAR FREE 100MG/10ML UDC NG SCH (09:00)
[2018-11-09 12:00] VITALS: BP 133/66
[2018-11-09 16:00] VITALS: BP 115/74
[2018-11-09] MEDS: ENOXAPARIN 40MG/0.4ML SYR SUBCUT SCH (17:01)
[2018-11-09 20:00] VITALS: BP 130/77
[2018-11-09] MEDS: RISPERIDONE 0.25MG TABLET PO SCH (20:13)
[2018-11-10] VITALS: BP 116/62
[2018-11-10] MEDS: ACETYLCYSTEINE 100MG/ML 10% VIAL 4ML INH SCH ×2 (00:03→09:02)
[2018-11-10] MEDS: IPRATROPIUM/ALBUTEROL 0.5-3(2.5)MG/3ML NEB HHN SCH ×3 (00:21→08:48)
[2018-11-10] MEDS: NYSTATIN 100,000 UNITS/ML 5ML UDC SSW SCH ×3 (01:22→12:08)
[2018-11-10] MEDS: DEXT 5%/0.9% NACL 1,000 ML IV SCH ×2 (02:49→12:52)
[2018-11-10 04:00] VITALS: BP 122/82
[2018-11-10] MEDS: METRONIDAZOLE 500 MG PREMIX 100 ML IV SCH ×3 (05:07→20:18)
[2018-11-10 08:00] VITALS: BP 156/81
[2018-11-10] MEDS: DOCUSATE SODIUM SUGAR FREE 100MG/10ML UDC NG SCH (09:00)
[2018-11-10] MEDS: DOCUSATE SODIUM 100MG CAPSULE PO PRN ×2 (09:34→09:35)
[2018-11-10] MEDS: LEVETIRACETAM 500MG/5ML CUP PO SCH ×2 (09:34→20:35)
[2018-11-10] MEDS: MULTIVITAMINS,THER W-MINERALS TABLET PO SCH (09:34)
[2018-11-10] MEDS: PHENYTOIN 100 MG/4 ML UDC NG SCH ×2 (09:34→19:35)
[2018-11-10] MEDS: FAMOTIDINE 20MG/2ML VIAL IV SCH (09:34)
[2018-11-10] MEDS: NYSTATIN 100,000 UNITS/GM CREAM 15GM TOP SCH (09:35)
[2018-11-10 12:00] VITALS: BP 120/78
[2018-11-10 14:55] VITALS: BP 120/78
[2018-11-10 16:00] VITALS: BP 115/65
[2018-11-10] MEDS: ENOXAPARIN 40MG/0.4ML SYR SUBCUT SCH (19:35)
[2018-11-10] MEDS: RISPERIDONE 0.25MG TABLET PO SCH (20:35)
== END 2018-11-10 21:52 | DRG 720 ==
LOC: ER 09:11 → 8WST 13:21 → EDBEDREQSVC 13:23 → EDBEDREQ 13:23 → ENRESERV 14:28 → 5EST 10-28 15:24 → CVICU 10-30 09:00 → 7WST 11-05 23:38
PROVIDERS: ADMIT Internal Medicine; ATTEND Internal Medicine
PROC: 02HV33Z Insertion of Infusion Device into Superior Vena Cava, Percutaneous Approach (ICD-10-PCS; principal; 2018-10-30)
PROC: 5A1955Z Respiratory Ventilation, Greater than 96 Consecutive Hours (ICD-10-PCS; 2018-10-30)
PROC: B548ZZA Ultrasonography of Superior Vena Cava, Guidance (ICD-10-PCS; 2018-10-30)
PROC: 0BH17EZ Insertion of Endotracheal Airway into Trachea, Via Natural or Artificial Opening (ICD-10-PCS; 2018-10-30)
DX: A41.9 Sepsis, unspecified organism (principal); J96.00 Acute respiratory failure, unspecified whether with hypoxia or hypercapnia; J69.0 Pneumonitis due to inhalation of food and vomit; G93.41 Metabolic encephalopathy; J84.9 Interstitial pulmonary disease, unspecified; E46 Unspecified protein-calorie malnutrition; J44.9 Chronic obstructive pulmonary disease, unspecified; R13.10 Dysphagia, unspecified; E78.5 Hyperlipidemia, unspecified; G93.89 Other specified disorders of brain; F03.90 Unspecified dementia, unspecified severity, without behavioral disturbance, psychotic disturbance, mood disturbance, and anxiety; G40.401 Other generalized epilepsy and epileptic syndromes, not intractable, with status epilepticus; E86.0 Dehydration; L02.416 Cutaneous abscess of left lower limb; L02.31 Cutaneous abscess of buttock; R19.7 Diarrhea, unspecified; I10 Essential (primary) hypertension; E87.6 Hypokalemia; B37.0 Candidal stomatitis; E78.00 Pure hypercholesterolemia, unspecified; N39.0 Urinary tract infection, site not specified; Z68.30 Body mass index [BMI] 30.0-30.9, adult; Z86.73 Personal history of transient ischemic attack (TIA), and cerebral infarction without residual deficits; Z87.440 Personal history of urinary (tract) infections; Z79.82 Long term (current) use of aspirin; Z79.899 Other long term (current) drug therapy; Z78.1 Physical restraint status
CPT/HCPCS: 36415; 36600; 71045; 76937; 80048; 80061; 80185; 80305; 80320; 81003; 82375; 82542; 82550; 82553; 82805; 83036; 83735; 83880; 84134; 84439; 84443; 84478; 84484; 85027; 85379; 87070; 92610; 93005; 93306; 93970; 94002; 94003; 94640; 99285; A6261; C1725; C1893; J1165; J1200; J1650; J1953; J2060; J2543; J2704; J3480; J3490; J7042; J7050; J7060; J7608; J7620; G0480

== ENCOUNTER 2019-07-02 09:54 | Inpatient (IN) | payer MEDICAID ==
[~2019-07-02] VITALS: Ht 172.7 cm; Wt 91.6 kg
[~2019-07-02 09:54] MED LIST changes: -ACET-2178 PO; -ASPI-1393 PO; +ASPI-1497 PO; -LEVO500T2 MT; +TOPUD PO
[2019-07-02] MEDS ORDERED: SODIUM CHLORIDE 0.9% 250 ML IV ONE (11:08)
[2019-07-02] MEDS ORDERED: LEVOFLOXACIN 500MG PREMIX 100 ML IV ONE (11:15)
[2019-07-02 12:09] LABS: BASOPHILS % 0.5 % (0.0-2.0); EOSINOPHILS % 5.6 % (0.0-5.0); HEMATOCRIT. 44.2 % (42.0-52.0); HEMOGLOBIN. 15.1 g/dL (14.0-18.0); LYMPHOCYTES % 18.8 % (20.0-50.0); MEAN CORPUSCULAR HEMOGLOBIN 30.2 pg (28.0-32.0); MEAN CORPUSCULAR VOLUME 88.4 fL (80.0-94.0); MEAN PLATELET VOLUME 8.4 fl (7.4-10.4); MONOCYTES % 12.5 % (2.0-8.0); NEUTROPHILS % 62.6 % (40.0-76.0); PLATELET 315 x1000/uL (130-400)
[2019-07-02 12:15] LABS: CHLORIDE 104 mEq/L (98-107)
[2019-07-02 12:23] LABS: D-DIMER 0.89 mg/L FEU (<0.50); INR 1.2; PROTHROMBIN TIME 13.1 sec (9.6-11.0)
[2019-07-02 12:24] LABS: CREATINE KINASE 121 IU/L (39-308)
[2019-07-02 12:28] LABS: CLARITY URINE CLEAR (CLEAR); COLOR URINE DARK YELLOW (YELLOW); KETONES URINE 3+ (NEGATIVE); LEUKOCYTE ESTERASE URINE TRACE (NEGATIVE); NITRITE URINE NEGATIVE (NEGATIVE); OCCULT BLOOD URINE 3+ (NEGATIVE); PH URINE 6.5 (4.5-8.0); PROTEIN URINE 2+ (NEGATIVE); SPECIFIC GRAVITY URINE 1.033 (1.005-1.030)
[2019-07-02 14:00] VITALS: BP 119/78
[2019-07-02] MEDS ORDERED: TEMAZEPAM 15MG CAPSULE PO PRN (15:00)
[2019-07-02 16:00] VITALS: BP 122/82
[2019-07-02] MEDS ORDERED: ACETAMINOPHEN 325MG TABLET PO PRN (16:15)
[2019-07-02] MEDS ORDERED: CLONIDINE 0.1MG TABLET PO PRN (16:15)
[2019-07-02] MEDS ORDERED: MAGNESIUM/ALUMINUM HYDROXIDE/SIMETHICONE 30ML UDC PO PRN (16:15)
[2019-07-02] MEDS ORDERED: DIPHENHYDRAMINE 50MG/ML VIAL IV PRN (16:15)
[2019-07-02] MEDS ORDERED: GUAIFENESIN 200MG/10ML SUGAR FREE UDC PO PRN (16:15)
[2019-07-02] MEDS ORDERED: ONDANSETRON HCL 4MG/2ML INJ IV PRN (16:15)
[2019-07-02] MEDS ORDERED: LORAZEPAM 2MG/ML CPJ IV PRN ×2 (16:15→20:45)
[2019-07-02] MEDS ORDERED: ENOXAPARIN 40MG/0.4ML SYR SUBCUT SCH (17:00)
[2019-07-02] MEDS ORDERED: AZITHROMYCIN 500 MG in DEXT 5% WATER 250 ML IV NR (18:00)
[2019-07-02 20:00] VITALS: BP 117/74
[2019-07-02] MEDS ORDERED: LEVETIRACETAM 500MG TABLET PO SCH (21:00)
[2019-07-02] MEDS ORDERED: ZOLPIDEM TARTRATE 5MG TABLET PO PRN (21:00)
[2019-07-02] MEDS: FAMOTIDINE 20MG TABLET PO SCH (21:13)
[2019-07-02] MEDS: SODIUM CHLORIDE 0.9% INJ 3ML FLUSH IVF SCH (21:13)
[2019-07-02] MEDS: ATORVASTATIN CALCIUM 40MG TABLET PO SCH (21:14)
[2019-07-02] MEDS: LEVETIRACETAM 500MG TABLET PO SCH (21:14)
[2019-07-02] MEDS ORDERED: PHENOBARBITAL 30 MG TABLET PO SCH (22:00)
[2019-07-03] VITALS: BP 132/80
[2019-07-03 04:00] VITALS: BP 120/70
[2019-07-03] MEDS: SODIUM CHLORIDE 0.9% INJ 3ML FLUSH IVF SCH ×3 (06:00→21:33)
[2019-07-03] MEDS: PHENOBARBITAL 30 MG TABLET PO SCH ×3 (06:01→21:32)
[2019-07-03 08:00] VITALS: BP 117/71
[2019-07-03] MEDS: ASPIRIN 81MG EC TABLET PO SCH (08:32)
[2019-07-03] MEDS: ASCORBIC ACID 500 MG TABLET PO SCH (08:32)
[2019-07-03] MEDS: LEVETIRACETAM 500MG TABLET PO SCH ×2 (08:32→21:32)
[2019-07-03 12:00] VITALS: BP 116/76
[2019-07-03 16:00] VITALS: BP 132/75
[2019-07-03] MEDS: AZITHROMYCIN 250 MG in DEXT 5% WATER 250 ML IV SCH (17:13)
[2019-07-03] MEDS: ENOXAPARIN 80MG/0.8ML SYR SUBCUT SCH (17:26)
[2019-07-03] MEDS: PIPERACILLIN/TAZOBACTAM 3.375 G in DEXT 5% WATER 100 ML IV SCH ×2 (17:26→23:09)
[2019-07-03 20:00] VITALS: BP 107/66
[2019-07-03] MEDS: FAMOTIDINE 20MG TABLET PO SCH (21:32)
[2019-07-03] MEDS: ATORVASTATIN CALCIUM 40MG TABLET PO SCH (21:32)
[2019-07-03] MEDS ORDERED: PIPERACILLIN/TAZOBACTAM 3.375 G/VIAL IV SCH (22:00)
[2019-07-04] VITALS: BP 124/79
[2019-07-04] MEDS: ENOXAPARIN 80MG/0.8ML SYR SUBCUT SCH ×2 (03:50→15:05)
[2019-07-04 03:58] VITALS: BP 130/74
[2019-07-04] MEDS: PHENOBARBITAL 30 MG TABLET PO SCH ×3 (05:52→22:14)
[2019-07-04] MEDS: PIPERACILLIN/TAZOBACTAM 3.375 G in DEXT 5% WATER 100 ML IV SCH ×4 (05:52→23:07)
[2019-07-04] MEDS: SODIUM CHLORIDE 0.9% INJ 3ML FLUSH IVF SCH ×3 (05:52→22:14)
[2019-07-04 08:00] VITALS: BP 125/77
[2019-07-04] MEDS: ASCORBIC ACID 500 MG TABLET PO SCH (08:56)
[2019-07-04] MEDS: LEVETIRACETAM 500MG TABLET PO SCH ×2 (08:56→20:54)
[2019-07-04] MEDS: ASPIRIN 81MG EC TABLET PO SCH (08:56)
[2019-07-04 12:00] VITALS: BP 100/61
[2019-07-04] MEDS: AZITHROMYCIN 250 MG in DEXT 5% WATER 250 ML IV SCH (15:05)
[2019-07-04 16:00] VITALS: BP 117/72
[2019-07-04 20:00] VITALS: BP 127/74
[2019-07-04] MEDS: FAMOTIDINE 20MG TABLET PO SCH (20:53)
[2019-07-04] MEDS: ATORVASTATIN CALCIUM 40MG TABLET PO SCH (20:54)
[2019-07-05] VITALS: BP 122/74
[2019-07-05] MEDS: ENOXAPARIN 80MG/0.8ML SYR SUBCUT SCH ×2 (03:25→15:17)
[2019-07-05 04:00] VITALS: BP 112/65
[2019-07-05] MEDS: PIPERACILLIN/TAZOBACTAM 3.375 G in DEXT 5% WATER 100 ML IV SCH ×3 (05:01→17:22)
[2019-07-05] MEDS: PHENOBARBITAL 30 MG TABLET PO SCH ×3 (05:01→21:29)
[2019-07-05 08:00] VITALS: BP 119/74
[2019-07-05] MEDS: SODIUM CHLORIDE 0.9% INJ 3ML FLUSH IVF SCH ×3 (08:38→21:29)
[2019-07-05] MEDS: ASCORBIC ACID 500 MG TABLET PO SCH (10:13)
[2019-07-05] MEDS: LEVETIRACETAM 500MG TABLET PO SCH ×2 (10:14→21:30)
[2019-07-05] MEDS: ASPIRIN 81MG EC TABLET PO SCH (10:14)
[2019-07-05 12:00] VITALS: BP 121/73
[2019-07-05] MEDS: AZITHROMYCIN 250 MG in DEXT 5% WATER 250 ML IV SCH (15:18)
[2019-07-05 16:00] VITALS: BP 119/81
[2019-07-05 20:00] VITALS: BP 118/75
[2019-07-05] MEDS: ATORVASTATIN CALCIUM 40MG TABLET PO SCH (21:29)
[2019-07-05] MEDS: FAMOTIDINE 20MG TABLET PO SCH (21:29)
[2019-07-06] VITALS: BP 121/60
[2019-07-06] MEDS: PIPERACILLIN/TAZOBACTAM 3.375 G in DEXT 5% WATER 100 ML IV SCH ×5 (00:25→23:49)
[2019-07-06] MEDS: ENOXAPARIN 80MG/0.8ML SYR SUBCUT SCH ×2 (02:40→17:23)
[2019-07-06 04:00] VITALS: BP 110/74
[2019-07-06] MEDS: SODIUM CHLORIDE 0.9% INJ 3ML FLUSH IVF SCH ×3 (05:01→21:34)
[2019-07-06] MEDS: PHENOBARBITAL 30 MG TABLET PO SCH ×3 (05:01→21:34)
[2019-07-06 08:00] VITALS: BP 129/72
[2019-07-06] MEDS ORDERED: AZITHROMYCIN 250 MG TABLET PO SCH (09:00)
[2019-07-06] MEDS: ASCORBIC ACID 500 MG TABLET PO SCH (09:40)
[2019-07-06] MEDS: LEVETIRACETAM 500MG TABLET PO SCH ×2 (09:40→21:34)
[2019-07-06] MEDS: ASPIRIN 81MG EC TABLET PO SCH (09:41)
[2019-07-06 12:00] VITALS: BP 99/50
[2019-07-06 16:00] VITALS: BP 118/73
[2019-07-06 20:00] VITALS: BP 121/78
[2019-07-06] MEDS: ATORVASTATIN CALCIUM 40MG TABLET PO SCH (21:34)
[2019-07-06] MEDS: FAMOTIDINE 20MG TABLET PO SCH (21:34)
[2019-07-07] VITALS: BP 103/77
[2019-07-07] MEDS: ENOXAPARIN 80MG/0.8ML SYR SUBCUT SCH ×2 (03:29→14:17)
[2019-07-07 04:00] VITALS: BP 126/75
[2019-07-07] MEDS: SODIUM CHLORIDE 0.9% INJ 3ML FLUSH IVF SCH ×3 (05:10→22:10)
[2019-07-07] MEDS: PHENOBARBITAL 30 MG TABLET PO SCH ×3 (05:10→22:09)
[2019-07-07] MEDS: PIPERACILLIN/TAZOBACTAM 3.375 G in DEXT 5% WATER 100 ML IV SCH ×3 (05:11→22:09)
[2019-07-07 08:00] VITALS: BP 105/70
[2019-07-07] MEDS: ASCORBIC ACID 500 MG TABLET PO SCH (09:47)
[2019-07-07] MEDS: LEVETIRACETAM 500MG TABLET PO SCH ×2 (09:47→22:09)
[2019-07-07] MEDS: ASPIRIN 81MG EC TABLET PO SCH (09:47)
[2019-07-07 12:00] VITALS: BP 116/73
[2019-07-07 16:00] VITALS: BP 111/57
[2019-07-07 20:00] VITALS: BP 137/81
[2019-07-07] MEDS: FAMOTIDINE 20MG TABLET PO SCH (22:09)
[2019-07-07] MEDS: ATORVASTATIN CALCIUM 40MG TABLET PO SCH (22:10)
[2019-07-08] VITALS: BP 108/64
[2019-07-08] MEDS: PIPERACILLIN/TAZOBACTAM 3.375 G in DEXT 5% WATER 100 ML IV SCH ×4 (03:19→17:42)
[2019-07-08] MEDS: ENOXAPARIN 80MG/0.8ML SYR SUBCUT SCH ×2 (03:20→14:37)
[2019-07-08 04:00] VITALS: BP 117/80
[2019-07-08] MEDS: PHENOBARBITAL 30 MG TABLET PO SCH (06:10)
[2019-07-08] MEDS: SODIUM CHLORIDE 0.9% INJ 3ML FLUSH IVF SCH ×3 (06:10→22:00)
[2019-07-08] MEDS: ASCORBIC ACID 500 MG TABLET PO SCH (08:09)
[2019-07-08] MEDS: LEVETIRACETAM 500MG TABLET PO SCH ×2 (08:09→20:43)
[2019-07-08] MEDS: ASPIRIN 81MG EC TABLET PO SCH (08:09)
[2019-07-08 12:10] VITALS: BP 104/71
[2019-07-08 16:00] VITALS: BP 130/80
[2019-07-08 20:00] VITALS: BP 119/62
[2019-07-08] MEDS: FAMOTIDINE 20MG TABLET PO SCH (20:42)
[2019-07-08] MEDS: ATORVASTATIN CALCIUM 40MG TABLET PO SCH (20:42)
[2019-07-09] VITALS: BP 121/75
[2019-07-09] MEDS: ENOXAPARIN 80MG/0.8ML SYR SUBCUT SCH ×2 (03:27→14:21)
[2019-07-09 04:00] VITALS: BP 114/78
[2019-07-09] MEDS: SODIUM CHLORIDE 0.9% INJ 3ML FLUSH IVF SCH ×2 (06:16→22:00)
[2019-07-09 08:00] VITALS: BP 111/70
[2019-07-09] MEDS: ASCORBIC ACID 500 MG TABLET PO SCH (08:52)
[2019-07-09] MEDS: LEVETIRACETAM 500MG TABLET PO SCH ×2 (08:52→20:25)
[2019-07-09] MEDS: ASPIRIN 81MG EC TABLET PO SCH (08:52)
[2019-07-09 12:00] VITALS: BP 106/61
[2019-07-09 16:00] VITALS: BP 96/64
[2019-07-09 20:00] VITALS: BP 113/56
[2019-07-09] MEDS: FAMOTIDINE 20MG TABLET PO SCH (20:20)
[2019-07-09] MEDS: ATORVASTATIN CALCIUM 40MG TABLET PO SCH (20:25)
[2019-07-10] VITALS: BP 100/56
[2019-07-10 04:00] VITALS: BP 97/57
[2019-07-10] MEDS: ENOXAPARIN 80MG/0.8ML SYR SUBCUT SCH ×3 (04:16→14:08)
[2019-07-10] MEDS: SODIUM CHLORIDE 0.9% INJ 3ML FLUSH IVF SCH ×3 (05:05→23:09)
[2019-07-10 08:00] VITALS: BP 112/63
[2019-07-10] MEDS: ASCORBIC ACID 500 MG TABLET PO SCH (09:14)
[2019-07-10] MEDS: ASPIRIN 81MG EC TABLET PO SCH (09:14)
[2019-07-10] MEDS: LEVETIRACETAM 500MG TABLET PO SCH ×2 (09:14→23:09)
[2019-07-10 12:00] VITALS: BP 124/76
[2019-07-10 16:00] VITALS: BP 106/68
[2019-07-10 20:00] VITALS: BP 114/68
[2019-07-10] MEDS: FAMOTIDINE 20MG TABLET PO SCH (23:09)
[2019-07-10] MEDS: ATORVASTATIN CALCIUM 40MG TABLET PO SCH (23:09)
[2019-07-11] VITALS: BP 139/74
[2019-07-11 04:00] VITALS: BP 126/70
[2019-07-11] MEDS: ENOXAPARIN 80MG/0.8ML SYR SUBCUT SCH ×2 (05:32→15:00)
[2019-07-11] MEDS: SODIUM CHLORIDE 0.9% INJ 3ML FLUSH IVF SCH ×3 (05:33→22:00)
[2019-07-11 08:00] VITALS: BP 116/78
[2019-07-11] MEDS: ASCORBIC ACID 500 MG TABLET PO SCH (08:39)
[2019-07-11] MEDS: ASPIRIN 81MG EC TABLET PO SCH (08:39)
[2019-07-11] MEDS: LEVETIRACETAM 500MG TABLET PO SCH ×2 (08:40→20:47)
[2019-07-11 12:00] VITALS: BP 124/83
[2019-07-11 16:00] VITALS: BP 118/79
[2019-07-11 20:00] VITALS: BP 149/91
[2019-07-11] MEDS: FAMOTIDINE 20MG TABLET PO SCH (20:47)
[2019-07-11] MEDS: ATORVASTATIN CALCIUM 40MG TABLET PO SCH (20:48)
[2019-07-12] VITALS: BP 132/82
[2019-07-12 04:00] VITALS: BP 137/78
[2019-07-12] MEDS: SODIUM CHLORIDE 0.9% INJ 3ML FLUSH IVF SCH ×3 (05:20→20:41)
[2019-07-12] MEDS: ENOXAPARIN 80MG/0.8ML SYR SUBCUT SCH ×2 (05:26→17:28)
[2019-07-12 08:00] VITALS: BP 113/74
[2019-07-12 09:07] LABS: BASOPHILS % 0.9 % (0.0-2.0); EOSINOPHILS % 0.4 % (0.0-5.0); HEMATOCRIT. 41.7 % (42.0-52.0); HEMOGLOBIN. 14.3 g/dL (14.0-18.0); LYMPHOCYTES % 22.1 % (20.0-50.0); MEAN CORPUSCULAR HEMOGLOBIN 30.3 pg (28.0-32.0); MEAN CORPUSCULAR VOLUME 88.6 fL (80.0-94.0); MEAN PLATELET VOLUME 7.9 fl (7.4-10.4); MONOCYTES % 11.6 % (2.0-8.0); PLATELET 410 x1000/uL (130-400); RED CELL DISTRIBUTION WIDTH 14.2 % (11.6-14.6)
[2019-07-12 09:12] LABS: CHLORIDE 107 mEq/L (98-107)
[2019-07-12] MEDS: ASPIRIN 81MG EC TABLET PO SCH (09:29)
[2019-07-12] MEDS: ASCORBIC ACID 500 MG TABLET PO SCH (09:29)
[2019-07-12] MEDS: LEVETIRACETAM 500MG TABLET PO SCH ×2 (09:29→20:41)
[2019-07-12 12:00] VITALS: BP 119/82
[2019-07-12 16:00] VITALS: BP 105/78
[2019-07-12 20:00] VITALS: BP 128/84
[2019-07-12] MEDS: FAMOTIDINE 20MG TABLET PO SCH (20:41)
[2019-07-12] MEDS: ATORVASTATIN CALCIUM 40MG TABLET PO SCH (20:41)
[2019-07-13] VITALS: BP 117/86
[2019-07-13 04:00] VITALS: BP 131/76
[2019-07-13] MEDS: SODIUM CHLORIDE 0.9% INJ 3ML FLUSH IVF SCH ×4 (06:00→21:47)
[2019-07-13] MEDS: ENOXAPARIN 80MG/0.8ML SYR SUBCUT SCH ×2 (06:21→18:33)
[2019-07-13 08:00] VITALS: BP 116/65
[2019-07-13] MEDS: ASCORBIC ACID 500 MG TABLET PO SCH (09:21)
[2019-07-13] MEDS: ASPIRIN 81MG EC TABLET PO SCH (09:21)
[2019-07-13] MEDS: LEVETIRACETAM 500MG TABLET PO SCH ×2 (09:21→21:17)
[2019-07-13 16:00] VITALS: BP 124/76
[2019-07-13 20:00] VITALS: BP 122/75
[2019-07-13] MEDS: FAMOTIDINE 20MG TABLET PO SCH (21:17)
[2019-07-13] MEDS: ATORVASTATIN CALCIUM 40MG TABLET PO SCH (21:17)
[2019-07-14] VITALS: BP 126/81
[2019-07-14 04:00] VITALS: BP 141/84
[2019-07-14] MEDS: SODIUM CHLORIDE 0.9% INJ 3ML FLUSH IVF SCH ×2 (05:58→21:03)
[2019-07-14] MEDS: ENOXAPARIN 80MG/0.8ML SYR SUBCUT SCH (06:01)
[2019-07-14] MEDS: ACETAMINOPHEN 325MG TABLET PO PRN (06:02)
[2019-07-14 08:00] VITALS: BP 113/71
[2019-07-14] MEDS: ASPIRIN 81MG EC TABLET PO SCH (09:12)
[2019-07-14] MEDS: ASCORBIC ACID 500 MG TABLET PO SCH (09:12)
[2019-07-14] MEDS: LEVETIRACETAM 500MG TABLET PO SCH ×2 (09:13→20:54)
[2019-07-14 12:00] VITALS: BP 113/65
[2019-07-14 16:00] VITALS: BP 129/85
[2019-07-14 20:00] VITALS: BP 118/69
[2019-07-14] MEDS: ATORVASTATIN CALCIUM 40MG TABLET PO SCH (20:54)
[2019-07-14] MEDS: FAMOTIDINE 20MG TABLET PO SCH (20:54)
[2019-07-15] VITALS: BP 127/70
[2019-07-15 04:00] VITALS: BP 127/82
[2019-07-15] MEDS: SODIUM CHLORIDE 0.9% INJ 3ML FLUSH IVF SCH ×3 (04:46→20:58)
[2019-07-15] MEDS: ENOXAPARIN 80MG/0.8ML SYR SUBCUT SCH ×2 (05:01→17:11)
[2019-07-15 08:00] VITALS: BP 117/73
[2019-07-15] MEDS: ASCORBIC ACID 500 MG TABLET PO SCH (09:09)
[2019-07-15] MEDS: LEVETIRACETAM 500MG TABLET PO SCH ×2 (09:10→20:58)
[2019-07-15] MEDS: ASPIRIN 81MG EC TABLET PO SCH (09:10)
[2019-07-15 12:00] VITALS: BP 120/79
[2019-07-15 16:00] VITALS: BP 147/82
[2019-07-15 20:00] VITALS: BP 149/89
[2019-07-15] MEDS: ATORVASTATIN CALCIUM 40MG TABLET PO SCH (20:58)
[2019-07-15] MEDS: FAMOTIDINE 20MG TABLET PO SCH (20:58)
[2019-07-16] VITALS: BP 130/77
[2019-07-16 04:00] VITALS: BP 122/76
[2019-07-16] MEDS: SODIUM CHLORIDE 0.9% INJ 3ML FLUSH IVF SCH ×3 (05:05→20:50)
[2019-07-16 08:00] VITALS: BP 118/73
[2019-07-16] MEDS: ASPIRIN 81MG EC TABLET PO SCH (09:41)
[2019-07-16] MEDS: ASCORBIC ACID 500 MG TABLET PO SCH (09:41)
[2019-07-16] MEDS: LEVETIRACETAM 500MG TABLET PO SCH ×2 (09:41→20:50)
[2019-07-16 10:55] LABS: BASOPHILS % 0.8 % (0.0-2.0); HEMATOCRIT. 42.1 % (42.0-52.0); HEMOGLOBIN. 14.3 g/dL (14.0-18.0); LYMPHOCYTES % 20.2 % (20.0-50.0); MEAN CORPUSCULAR HEMOGLOBIN 30.5 pg (28.0-32.0); MEAN CORPUSCULAR VOLUME 89.6 fL (80.0-94.0); MEAN PLATELET VOLUME 8.2 fl (7.4-10.4); MONOCYTES % 8.7 % (2.0-8.0); NEUTROPHILS % 69.3 % (40.0-76.0); PLATELET 307 x1000/uL (130-400); RED BLOOD CELL COUNT 4.69 mill/uL (4.7-6.1); RED CELL DISTRIBUTION WIDTH 14.9 % (11.6-14.6)
[2019-07-16 11:04] LABS: CHLORIDE 107 mEq/L (98-107)
[2019-07-16 11:41] LABS: CLARITY URINE TURBID (CLEAR); COLOR URINE RED (YELLOW); KETONES URINE 2+ (NEGATIVE); LEUKOCYTE ESTERASE URINE 3+ (NEGATIVE); NITRITE URINE POSITIVE (NEGATIVE); OCCULT BLOOD URINE 3+ (NEGATIVE); PROTEIN URINE 3+ (NEGATIVE); SPECIFIC GRAVITY URINE 1.026 (1.005-1.030)
[2019-07-16 12:00] VITALS: BP 137/84
[2019-07-16] MEDS ORDERED: LEVOFLOXACIN 500MG PREMIX 100 ML IV SCH (15:00)
[2019-07-16 16:00] VITALS: BP 129/81
[2019-07-16 20:00] VITALS: BP 136/84
[2019-07-16] MEDS: ATORVASTATIN CALCIUM 40MG TABLET PO SCH (20:50)
[2019-07-16] MEDS: FAMOTIDINE 20MG TABLET PO SCH (20:50)
[2019-07-17] VITALS: BP 126/85
[2019-07-17 04:00] VITALS: BP 137/84
[2019-07-17] MEDS: SODIUM CHLORIDE 0.9% INJ 3ML FLUSH IVF SCH ×3 (06:12→21:53)
[2019-07-17] MEDS: ACETAMINOPHEN 325MG TABLET PO PRN (06:12)
[2019-07-17 08:00] VITALS: BP 113/86
[2019-07-17] MEDS: ASCORBIC ACID 500 MG TABLET PO SCH (09:59)
[2019-07-17] MEDS: LEVETIRACETAM 500MG TABLET PO SCH ×2 (09:59→21:52)
[2019-07-17] MEDS: ASPIRIN 81MG EC TABLET PO SCH (09:59)
[2019-07-17] MEDS ORDERED: LEVOFLOXACIN 500MG TABLET PO SCH (11:00)
[2019-07-17 12:00] VITALS: BP 118/78
[2019-07-17 16:00] VITALS: BP 114/74
[2019-07-17 20:00] VITALS: BP 131/65
[2019-07-17] MEDS: FAMOTIDINE 20MG TABLET PO SCH (21:53)
[2019-07-17] MEDS: ATORVASTATIN CALCIUM 40MG TABLET PO SCH (21:53)
[2019-07-17] MEDS ORDERED: LORAZEPAM 2MG/ML CPJ IM PRN (22:45)
[2019-07-17] MEDS ORDERED: LORAZEPAM 2MG/ML CPJ IV PRN (22:45)
[2019-07-18] VITALS: BP 117/74
[2019-07-18 04:00] VITALS: BP 140/81
[2019-07-18] MEDS: SODIUM CHLORIDE 0.9% INJ 3ML FLUSH IVF SCH ×3 (05:17→22:06)
[2019-07-18 08:00] VITALS: BP 124/73
[2019-07-18] MEDS: LEVETIRACETAM 500MG TABLET PO SCH (08:58)
[2019-07-18] MEDS: ASCORBIC ACID 500 MG TABLET PO SCH (08:58)
[2019-07-18] MEDS: ASPIRIN 81MG EC TABLET PO SCH (08:58)
[2019-07-18] MEDS ORDERED: LORAZEPAM 2MG/ML CPJ IM PRN (10:00)
[2019-07-18] MEDS ORDERED: PHENYTOIN SODIUM 1,000 MG in SODIUM CHLORIDE 0.9% 100 ML IV NR (11:00)
[2019-07-18 12:00] VITALS: BP 115/77
[2019-07-18] MEDS: SODIUM CHLORIDE 0.9% 1,000 ML IV SCH (13:09)
[2019-07-18] MEDS: AMOXICILLIN 500 MG CAPSULE PO SCH ×2 (14:27→22:22)
[2019-07-18 16:00] VITALS: BP 133/74
[2019-07-18] MEDS: FAMOTIDINE 20MG TABLET PO SCH (21:57)
[2019-07-18] MEDS: LEVETIRACETAM 750 MG in SODIUM CHLORIDE 0.9% 100 ML IV SCH (22:07)
[2019-07-18] MEDS: ATORVASTATIN CALCIUM 40MG TABLET PO SCH (22:07)
[2019-07-19] VITALS: BP 106/50
[2019-07-19 04:00] VITALS: BP 136/78
[2019-07-19] MEDS: AMOXICILLIN 500 MG CAPSULE PO SCH ×3 (06:03→22:22)
[2019-07-19] MEDS: SODIUM CHLORIDE 0.9% 1,000 ML IV SCH (06:03)
[2019-07-19] MEDS: SODIUM CHLORIDE 0.9% INJ 3ML FLUSH IVF SCH ×3 (06:03→21:55)
[2019-07-19 07:00] VITALS: BP 144/86
[2019-07-19 07:43] LABS: BASOPHILS % 0.7 % (0.0-2.0); EOSINOPHILS % 1.9 % (0.0-5.0); HEMATOCRIT. 42.1 % (42.0-52.0); HEMOGLOBIN. 14.1 g/dL (14.0-18.0); LYMPHOCYTES % 17.3 % (20.0-50.0); MEAN CORPUSCULAR HEMOGLOBIN 30.6 pg (28.0-32.0); MEAN CORPUSCULAR VOLUME 91.3 fL (80.0-94.0); MEAN PLATELET VOLUME 8.5 fl (7.4-10.4); MONOCYTES % 13.3 % (2.0-8.0); NEUTROPHILS % 66.8 % (40.0-76.0); PLATELET 232 x1000/uL (130-400); RED BLOOD CELL COUNT 4.61 mill/uL (4.7-6.1); RED CELL DISTRIBUTION WIDTH 15.1 % (11.6-14.6)
[2019-07-19] MEDS: ASPIRIN 81MG EC TABLET PO SCH (08:43)
[2019-07-19] MEDS: ASCORBIC ACID 500 MG TABLET PO SCH (08:43)
[2019-07-19] MEDS: LEVETIRACETAM 750 MG in SODIUM CHLORIDE 0.9% 100 ML IV SCH ×2 (08:43→21:55)
[2019-07-19 08:47] LABS: CHLORIDE 111 mEq/L (98-107)
[2019-07-19] MEDS: PHENYTOIN SODIUM EXTENDED 100MG CAPSULE PO SCH (10:46)
[2019-07-19 12:00] VITALS: BP 112/76
[2019-07-19] MEDS ORDERED: PHENYTOIN SODIUM 500 MG in SODIUM CHLORIDE 0.9% 50 ML IV SCH (14:30)
[2019-07-19 20:00] VITALS: BP 123/97
[2019-07-19] MEDS: FAMOTIDINE 20MG TABLET PO SCH (21:54)
[2019-07-19] MEDS: ATORVASTATIN CALCIUM 40MG TABLET PO SCH (21:55)
[2019-07-20] VITALS: BP 126/64
[2019-07-20] MEDS: SODIUM CHLORIDE 0.9% 1,000 ML IV SCH (01:17)
[2019-07-20] MEDS: SODIUM CHLORIDE 0.9% INJ 3ML FLUSH IVF SCH ×3 (06:20→21:01)
[2019-07-20] MEDS: AMOXICILLIN 500 MG CAPSULE PO SCH ×3 (06:23→21:00)
[2019-07-20 08:00] VITALS: BP 138/70
[2019-07-20] MEDS: LEVETIRACETAM 750 MG in SODIUM CHLORIDE 0.9% 100 ML IV SCH (08:25)
[2019-07-20] MEDS: PHENYTOIN SODIUM EXTENDED 100MG CAPSULE PO SCH (08:26)
[2019-07-20] MEDS: ASPIRIN 81MG EC TABLET PO SCH (08:26)
[2019-07-20] MEDS: ASCORBIC ACID 500 MG TABLET PO SCH (08:26)
[2019-07-20 12:00] VITALS: BP 131/81
[2019-07-20 16:00] VITALS: BP 141/70
[2019-07-20] MEDS: ATORVASTATIN CALCIUM 40MG TABLET PO SCH (21:00)
[2019-07-20] MEDS: LEVETIRACETAM 500MG/5ML CUP PO SCH (21:00)
[2019-07-20] MEDS: FAMOTIDINE 20MG TABLET PO SCH (21:00)
[2019-07-21] VITALS: BP 120/78
[2019-07-21 04:00] VITALS: BP 121/76
[2019-07-21] MEDS: SODIUM CHLORIDE 0.9% INJ 3ML FLUSH IVF SCH ×2 (05:07→13:26)
[2019-07-21] MEDS: AMOXICILLIN 500 MG CAPSULE PO SCH ×2 (05:08→13:45)
[2019-07-21 08:00] VITALS: BP 113/86
[2019-07-21] MEDS: ASPIRIN 81MG EC TABLET PO SCH (08:28)
[2019-07-21] MEDS: PHENYTOIN SODIUM EXTENDED 100MG CAPSULE PO SCH (08:28)
[2019-07-21] MEDS: LEVETIRACETAM 500MG/5ML CUP PO SCH (08:28)
[2019-07-21] MEDS: ASCORBIC ACID 500 MG TABLET PO SCH (08:29)
[2019-07-21 12:00] VITALS: BP 110/71
[2019-07-21 16:00] VITALS: BP 114/73
[2019-07-21 16:32] VITALS: BP 110/71
== END 2019-07-21 20:40 | DRG 720 ==
LOC: ER 10:22 → 7WST 11:47 → EDBEDREQTM 11:54 → EDBEDREQSVC 11:54 → EDBEDREQ 11:54 → ENRESERV 13:07
PROVIDERS: ADMIT Internal Medicine; ATTEND Internal Medicine
PROC: 02HV33Z Insertion of Infusion Device into Superior Vena Cava, Percutaneous Approach (ICD-10-PCS; principal; 2019-07-18)
PROC: B548ZZA Ultrasonography of Superior Vena Cava, Guidance (ICD-10-PCS; 2019-07-18)
PROC: B5181ZA Fluoroscopy of Superior Vena Cava using Low Osmolar Contrast, Guidance (ICD-10-PCS; 2019-07-18)
DX: A41.89 Other specified sepsis (principal); U07.1 COVID-19; J96.00 Acute respiratory failure, unspecified whether with hypoxia or hypercapnia; E43 Unspecified severe protein-calorie malnutrition; J69.0 Pneumonitis due to inhalation of food and vomit; D68.59 Other primary thrombophilia; F03.90 Unspecified dementia, unspecified severity, without behavioral disturbance, psychotic disturbance, mood disturbance, and anxiety; E86.0 Dehydration; N30.91 Cystitis, unspecified with hematuria; E78.5 Hyperlipidemia, unspecified; G40.909 Epilepsy, unspecified, not intractable, without status epilepticus; I10 Essential (primary) hypertension; D72.810 Lymphocytopenia; E78.00 Pure hypercholesterolemia, unspecified; M19.011 Primary osteoarthritis, right shoulder; M19.012 Primary osteoarthritis, left shoulder; R74.0 Nonspecific elevation of levels of transaminase and lactic acid dehydrogenase [LDH]; R62.7 Adult failure to thrive; Z87.440 Personal history of urinary (tract) infections; Z86.73 Personal history of transient ischemic attack (TIA), and cerebral infarction without residual deficits; Z68.30 Body mass index [BMI] 30.0-30.9, adult; Z79.899 Other long term (current) drug therapy; Z79.82 Long term (current) use of aspirin
CPT/HCPCS: 36415; 36573; 71045; 80048; 80053; 80185; 81003; 82550; 82728; 82962; 83605; 83615; 83735; 83880; 84100; 84145; 84484; 85025; 85379; 85384; 86140; 87077; 87186; 87635; 87804; 93005; 99291; C1725; J0456; J1165; J1650; J1953; J1956; J2060; J2543; J7030; J7050; J7060; U0003-CS